=== PATIENT | female | born 1960 | race Caucasian/White ===

== ENCOUNTER 2021-02-04 22:53 | Inpatient (IN) | payer MEDICARE, OTHER ==
[~2021-02-04] VITALS: Ht 170 cm; Wt 83.5 kg
[2021-02-05] MEDS ORDERED: ENOXAPARIN 40 MG/0.4 ML (LOVENOX) SYR ONE (01:38)
[2021-02-05] MEDS ORDERED: NS IV 1000 ML 1,000 ML ONE (01:42)
[2021-02-05] MEDS ORDERED: ENOXAPARIN 40 MG/0.4 ML (LOVENOX) SYR SC ONE (01:45)
[2021-02-05] MEDS: NS IV 1000 ML 1,000 ML IV SCH ×2 (01:56→17:11)
[2021-02-05] MEDS ORDERED: PIPERACILLIN/TAZOBACTAM (BULK) 4.5 GM in NS (IVPB) 100 ML IV ONE (02:00)
[2021-02-05] MEDS: fentaNYL INJ 100 MCG/2 ML AMP IVP PRN ×4 (02:03→08:04)
[2021-02-05 02:13] LABS: ABG BASE EXCESS -0.2 MMOL/L (-2.5-2.5); ABG OXYGEN SATURATION 96 % (94-100); ABG PCO2 45 MMHG (35-45); ABG PH 7.35 (7.37-7.43); ABG PO2 81 MMHG (79-93); ABG TCO2 26.1 MMOL/L (21.0-31.0)
[2021-02-05 02:16] LABS: ALLENS TEST YES-POS; INSPIRED O2 8L; PATIENT TEMP 36.7; VENTILATOR NO
[2021-02-05] MEDS ORDERED: PIPERACILLIN/TAZO 4.5 GM VIAL (ZOSYN) IV ONE (02:23)
[2021-02-05] MEDS: AZITHROMYCIN INJECTION 500 MG in NS (IVPB) 250 ML IV SCH (02:48)
[2021-02-05 04:42] LABS: BASOPHILS % (AUTO) 0 % (0-10); EOSINOPHILS % (AUTO) 0 % (0-10)
[2021-02-05 04:44] LABS: HEMATOCRIT 35 % (35-52); HEMOGLOBIN 11.3 g/dL (11.5-16.0); LYMPHOCYTES # (AUTO) 1.7 10^3/uL (1.0-4.0); LYMPHOCYTES % (AUTO) 16 % (12-44); MEAN CORPUSCULAR HEMOGLOBIN 28 pg (25-34); MEAN CORPUSCULAR HGB CONC 33 g/dL (32-36); MEAN CORPUSCULAR VOLUME 85 fL (80-99); MEAN PLATELET VOLUME 11.6 fL (9.0-12.2); MONOCYTES # (AUTO) 0.6 10^3/uL (0.0-1.0); MONOCYTES % (AUTO) 6 % (0-12); NEUTROPHILS # (AUTO) 7.9 10^3/uL (1.8-7.8); NEUTROPHILS % (AUTO) 76 % (42-75); PLATELET COUNT 95 10^3/uL (130-400); WHITE BLOOD COUNT 10.4 10^3/uL (4.3-11.0)
[2021-02-05 04:58] LABS: BUN/CREATININE RATIO 10; CALCIUM 7.9 MG/DL (8.5-10.1); CARBON DIOXIDE 21 MMOL/L (21-32); CHLORIDE 108 MMOL/L (98-107); CREATININE SERUM 0.87 MG/DL (0.60-1.30); GFR ESTIMATED > 60; GLUCOSE 118 MG/DL (70-105); MAGNESIUM 2.1 MG/DL (1.6-2.4); PHOSPHORUS 3.5 MG/DL (2.3-4.7); POTASSIUM 3.6 MMOL/L (3.6-5.0); SODIUM 138 MMOL/L (135-145)
[2021-02-05] MEDS: POTASSIUM CL 10MEQ/50ML IVPB 50 ML IV SCH (05:00)
[2021-02-05] MEDS: MAGNESIUM 1 GM/100 ML IVPB 100 ML IV SCH (05:00)
[2021-02-05] MEDS: KCL 20 MEQ TAB (K-DUR) PO SCH (05:01)
[2021-02-05] MEDS ORDERED: CATHETER FLUSH 10 ML SYR IV PRN (07:15)
--- NOTE | 2021-02-05 07:37 | Diagnostic Imaging Report ---
INDICATION: Pneumonia. No prior examinations are available for comparison. FINDINGS: The heart size is normal. Some mild venous congestion. There are patchy bibasilar infiltrates. There are small bilateral pleural effusions. There is no pneumothorax. Mediastinum is unremarkable. IMPRESSION: Patchy bibasilar infiltrates and small bilateral pleural effusions. Cardiomegaly and mild central pulmonary venous congestion. Dictated by: Dictated on workstation # [id number]
[2021-02-05] MEDS ORDERED: KCL 20 MEQ TAB (K-DUR) PO ONE (08:00)
[2021-02-05] MEDS: PIPERACILLIN/TAZOBACTAM (BULK) 4.5 GM in NS (IVPB) 100 ML IV SCH ×2 (08:04→17:11)
[2021-02-05] MEDS ORDERED: ACETAMINOPHEN 325 MG TABLET PO PRN (09:45)
[2021-02-05] MEDS ORDERED: oxyCODONE/APAP 5/325MG (PERCOCET 5) TABLET PO PRN (09:45)
--- NOTE | 2021-02-05 10:34 | History & Physical-Hospitalist ---
History of Present Illness HPI/Chief Complaint Jennifer Cervantes is a 60-year-old female with past medical history of hypertension, hypothyroidism, fibromyalgia, who presented to [facility] in [place] with right- sided back pain and right upper quadrant abdominal pain. She reports that the pain started last night. She denies any fevers or chills. She denies any shortness of breath or cough. She denies any chest pain. She denies any nausea or vomiting. She denies any diarrhea. She denies any dysuria, frequency, or urgency. She denies any hematuria. Source: patient Exam Limitations: no limitations Date Seen 02/05/21 Time Seen by a Provider: 09:35 Attending Physician Leelee Cruz Haley J MD Referring Physician Date of Admission Feb 05, 2021 at 00:43 Home Medications & Allergies Home Medications Reviewed patient Home Medication Reconciliation performed by pharmacy medication reconciliations fire alarm technician and/or nursing. Patients Allergies have been reviewed. Allergies Allergies Coded Allergies codeine (Unverified Allergy, Unknown, 02/05/21) Past Cfjatmo-Cbggwj-Zdejew Hx Past Med/Social Hx: Reviewed Nursing Past Med/Soc Hx Patient Social History Smoking Status: Never a Smoker Review of Systems Constitutional: no symptoms reported EENTM: no symptoms reported Respiratory: no symptoms reported Cardiovascular: no symptoms reported Gastrointestinal: RUQ, abdominal pain (RUQ) Genitourinary: no symptoms reported Musculoskeletal: back pain Skin: no symptoms reported Psychiatric/Neurological: No Symptoms Reported Physical Exam Physical Exam Vital Signs Vital Signs - First Documented 02/05/21 02/05/21 02/05/21 02/05/21 00:45 01:06 01:52 02:11 Temp 36.7 Pulse 89 Resp 16 B/P (MAP) 166/108 (127) Pulse Ox 94 O2 Delivery High Flow N/C O2 Flow Rate 8.00 FiO2 50 Capillary Refill : Height, Weight, BMI Height: '" Weight: lbs. oz. kg; 30.10 BMI Method: General Appearance: Mild Distress (back pain), Obese HEENT: PERRL/EOMI, Pharynx Normal Neck: Normal Inspection, Supple Respiratory: Lungs Clear, Normal Breath Sounds, No Respiratory Distress Cardiovascular: Regular Rate, Rhythm, No Edema, No Murmur Gastrointestinal: Normal Bowel Sounds; No Distended; Guarding, Tenderness Back: Normal Inspection, No Vertebral Tenderness, CVA Tenderness (R) Extremity: Normal Inspection, Non Tender, No Pedal Edema Neurologic/Psychiatric: Alert, Oriented x3, No Motor/Sensory Deficits, Normal Mood/Affect Skin: Normal Color, Warm/Dry Results Results/Procedures Labs Laboratory Tests 02/05/21 04:20 Patient resulted labs reviewed. Imaging: Reviewed Imaging Report Assessment/Plan Admission Diagnosis Acute respiratory failure with hypoxia due to pneumonia Admission Status: Inpatient Order (span 2 midnights) Reason for Inpatient Admission: Respiratory failure requiring oxygen Pneumonia requiring antibiotics Assessment and Plan Acute respiratory failure with hypoxia Pneumonia Pleural effusion COVID PUI CT Chest with right effusion and consolidation Started on Zosyn and Azithromycin Requiring Vapotherm 25 L and 50% FiO2 COVID ARTURO negative, PCR pending Add influenza testing Elevated troponin Troponin mildly elevated Cardiology consulted, appreciate assistance Repeat troponin Repeat EKG RUQ pain Fatty liver CT Abdomen without acute abnormalities Revealed enlarged, fatty liver Add on hepatic panel Obtain RUQ ultrasound Pyuria Possible UTI UA with WBC 11-25 Add on urine culture Pulmonary nodule 1 cm nodule identified on CT Will need follow up CT in 6-8 weeks HTN Hypothyroidism Fibromyalgia Continue home meds after reconciliation completed DVT prophylaxis: Lovenox Diagnosis/Problems Diagnosis/Problems (1) Acute respiratory failure with hypoxia Status: Acute (2) PNA (pneumonia) Status: Acute (3) Person under investigation for COVID-19 Status: Acute (4) Pleural effusion Status: Acute (5) Pulmonary nodule Status: Acute (6) Fatty liver Status: Acute (7) RUQ abdominal pain Status: Acute (8) Elevated troponin Status: Acute (9) HTN (hypertension) Status: Chronic (10) Hypothyroidism Status: Chronic (11) Pyuria Status: Acute (12) Fibromyalgia Status: Chronic FRANCINE BRO MD Feb 05, 2021 10:34
[2021-02-05 11:01] LABS: ALBUMIN 3.6 GM/DL (3.2-4.5); BILIRUBIN,DIRECT 0.3 MG/DL (0.0-0.3); BILIRUBIN,INDIRECT 0.6 MG/DL; BILIRUBIN,TOTAL 0.9 MG/DL (0.1-1.0); TOTAL PROTEIN 6.6 GM/DL (6.4-8.2)
[2021-02-05] MEDS: oxyCODONE/APAP 10/325MG (PERCOCET 10) TABLET PO PRN ×3 (11:08→20:54)
--- NOTE | 2021-02-05 12:54 | Consultation-Cardiology ---
HPI-Cardiology Cardiology Consultation: Date of Consultation 02/05/21 Time Seen by a Provider: 09:30 Date of Admission Attending Physician Leelee Cruz DO Admitting Physician Nettie Yap MD Consulting Physician ELDON RIOS MD, MA, FACP, FACC, FSCAI, CCDS Physician requesting consult: Dr Kurtz HPI: Chief Complaint: CC: R upper abdominal and R lower chest wall pain HPI 60 yo woman with several days of malaise, admitted with RLL pneumonia. Is reported to have been hypoxic at presentation (O2 sat in the 80s at presentation). Pain is worse with inspiration is constantly persistent for 1-2 days, does not radiate, is moderate in intensity, has not been experienced before. Does not report n/v/d. Does not report dysuria. Does not report swelling. Does not report shortness of breath. Does not report syncope. Has gen malaise. Does not report fever or chills. Does not report wgt gain or wgt loss recently Review of Systems-Cardiology Review of Systems Constitutional: As described under HPI Eyes: No vision change Ears/Nose/Throat: No ear discharge, No nasal drainage, No recent hearing loss Respiratory: As described under HPI Cardiovascular: As described under HPI Gastrointestinal: As described under HPI Genitourinary: As described under HPI Musculoskeletal: As describe under HPI Skin: No rash, No ulcerations Psychiatric/Neurological: No seizure, No focal weakness, No syncope Hematologic: No bleeding abnormalities [id number]-[id number] Hx Patient Social History Smoking Status: Never a Smoker Have you traveled recently?: No Alcohol Use?: No Pt feels they are or have been: No Past Medical History PMH As described under Assessment. Family Medical History Family Medical History: Does not report fam h/o premature CAD or SCD Allergies and Home Medications Allergies Coded Allergies: codeine (Unverified Allergy, Unknown, 02/05/21) Patient Home Medication List Home Medication List Reviewed: Yes Physical Exam-Cardiology Physical Exam Vital Signs/I&O 02/05/21 02/05/21 02/05/21 02/05/21 00:45 01:06 01:14 01:52 Temp 36.7 Pulse 89 87 87 Resp 16 B/P (MAP) 166/108 (127) 180/112 (134) Pulse Ox 94 O2 Delivery High Flow N/C High Flow N/C O2 Flow Rate 8.00 8.00 02/05/21 02/05/21 02/05/21 02/05/21 02:00 02:11 02:11 03:00 Pulse 96 92 Resp 21 14 B/P (MAP) 141/89 (106) 128/89 (102) Pulse Ox 92 95 92 O2 Delivery Vapotherm Vapotherm Vapotherm Vapotherm O2 Flow Rate 25.00 25.00 25.00 25.00 50.00 50.00 FiO2 50 50 02/05/21 02/05/21 02/05/21 02/05/21 03:54 04:00 04:47 05:00 Temp 36.0 Pulse 90 86 Resp 27 19 B/P (MAP) 139/95 (110) 125/85 (98) Pulse Ox 93 93 O2 Delivery Vapotherm Vapotherm Vapotherm O2 Flow Rate 25.00 25.00 25.00 50.00 50.00 FiO2 50 02/05/21 02/05/21 02/05/21 02/05/21 06:00 06:30 07:00 07:00 Pulse 88 85 80 Resp 13 29 B/P (MAP) 132/87 (102) 134/82 (99) Pulse Ox 95 95 95 O2 Delivery Vapotherm Vapotherm Vapotherm O2 Flow Rate 25.00 25.00 25.00 50.00 50.00 FiO2 50 02/05/21 02/05/21 02/05/21 02/05/21 08:00 08:00 08:00 09:00 Temp 36.4 Pulse 92 82 Resp 38 18 B/P (MAP) 131/87 (102) 142/83 (102) Pulse Ox 90 97 O2 Delivery Vapotherm Vapotherm Vapotherm O2 Flow Rate 25.00 25.00 25.00 50.00 50.00 FiO2 55 02/05/21 02/05/21 02/05/21 10:00 11:00 12:00 Pulse 84 89 91 Resp 24 39 33 B/P (MAP) 142/90 (107) 154/105 (121) 138/81 (100) Pulse Ox 93 96 92 O2 Delivery Vapotherm Vapotherm Vapotherm O2 Flow Rate 25.00 25.00 25.00 50.00 50.00 50.00 Capillary Refill : Constitutional: AAO x 3, well-developed, well-nourished HEENT: EOMI, hearing is well preserved; No xanthelasmas are seen Neck: carotid pulses are 2 + bilaterally, with good upstrokes Respiratory: No accessory muscle use; other (diminished air entry at the R bas e; pleuritic pain experienced by the patient upon inspiration) Cardiovascular: regular rate-rhythm, S1 and S2, systolic murmur (faint MIGUE at card base) Gastrointestinal: No tender; soft; No guarding, No rebound; audible bowel sounds Extremities: No clubbing, No cyanosis, No significant edema Neurologic/Psychiatric: oriented x 3, other (moves all limbs equally) Skin: warm/dry; No cool, No rash on exposed areas, No ulcerations on exposed areas Data Review Labs Laboratory Tests 02/05/21 01:10: Coronavirus 2019 (ARTURO) Negative 02/05/21 02:03: Blood Gas Puncture Site RIGHT RADIAL, Blood Gas Patient Temperature 36.7, Arterial Blood pH 7.35L, Arterial Blood Partial Pressure CO2 45, Arterial Blood Partial Pressure O2 81, Arterial Blood HCO3 25, Arterial Blood Total CO2 26.1, Arterial Blood Oxygen Saturation 96, Arterial Blood Base Excess -0.2, Laz Test YES-POS, Blood Gas Ventilator Setting NO, Blood Gas Inspired Oxygen 8L 02/05/21 04:20: White Blood Count 10.4, Red Blood Count 4.08, Hemoglobin 11.3L, Hematocrit 35, Mean Corpuscular Volume 85, Mean Corpuscular Hemoglobin 28, Mean Corpuscular Hemoglobin Concent 33, Red Cell Distribution Width 14.5, Platelet Count 95L, Mean Platelet Volume 11.6, Immature Granulocyte % (Auto) 1, Neutrophils (%) (Auto) 76H, Lymphocytes (%) (Auto) 16, Monocytes (%) (Auto) 6, Eosinophils (%) (Auto) 0, Basophils (%) (Auto) 0, Neutrophils # (Auto) 7.9H, Lymphocytes # (Auto) 1.7, Monocytes # (Auto) 0.6, Eosinophils # (Auto) 0.0, Basophils # (Auto) 0.0, Immature Granulocyte # (Auto) 0.1, Sodium Level 138, Potassium Level 3.6, Chloride Level 108H, Carbon Dioxide Level 21, Anion Gap 9, Blood Urea Nitrogen 9, Creatinine 0.87, Estimat Glomerular Filtration Rate > 60, BUN/Creatinine Ratio 10, Glucose Level 118H, Calcium Level 7.9L, Phosphorus Level 3.5, Magnesium Level 2.1, Troponin I 0.104H 02/05/21 10:15: Troponin I 0.086H, Total Bilirubin 0.9, Direct Bilirubin 0.3, Indirect Bilirubin 0.6, Aspartate Amino Transf (AST/SGOT) 15, Alanine Aminotransferase (ALT/SGPT) 15, Alkaline Phosphatase 77, B-Type Natriuretic Peptide 48.7, Total Protein 6.6, Albumin 3.6 Laboratory Tests 02/05/21 04:20 A/P-Cardiology Assessment/Admission Diagnosis Large RLL pneumonia with pleurisy and hypoxia Mild troponin elevation: type 2 [place] due to hypoxia due to RLL pnuemonia and dsypnea (due to pleurisy) Discussion and Recomendations * Tele * ECG * ASA * Monitor labs ELDON RIOS MD FACP [facility] Feb 05, 2021 12:54
[2021-02-05] MEDS ORDERED: LEVO25TA5 PO (14:34)
[2021-02-05] MEDS ORDERED: GABA300C PO (14:34)
[2021-02-05] MEDS ORDERED: CYCL10TA9 PO (14:34)
[2021-02-05] MEDS ORDERED: NEURIVA PO (14:34)
[2021-02-05] MEDS ORDERED: DULO60CA59 PO (14:34)
[2021-02-05] MEDS ORDERED: TRAM50TA3 PO (14:34)
[2021-02-05] MEDS ORDERED: CAND1TAB14 PO (14:34)
--- NOTE | 2021-02-05 14:54 | Diagnostic Imaging Report ---
PROCEDURE: US Hepatic (Liver). TECHNIQUE: Multiple real-time grayscale images were obtained over the right upper quadrant in various projections. INDICATION: Right upper quadrant pain. FINDINGS: Liver is upper limits of normal in size at 17.7 cm. Portal vein is patent and shows normal direction of flow. No liver mass is seen. Gallbladder is without stones or sludge. No wall thickening or biliary ductal dilatation is seen. Pancreas was obscured by bowel gas. Proximal aorta is nonaneurysmal. Mid and distal aorta were obscured. IVC is patent. Right kidney is without calculi or hydronephrosis. There is a questionable right-sided pleural effusion. IMPRESSION: 1. Unremarkable liver ultrasound. No liver mass or biliary ductal dilatation is seen. The gallbladder is unremarkable. 2. Questionable right pleural effusion. Dictated by: Dictated on workstation # [id number]
[2021-02-05] MEDS: ENOXAPARIN 40 MG/0.4 ML (LOVENOX) SYR SC SCH (20:54)
[2021-02-06] MEDS: oxyCODONE/APAP 10/325MG (PERCOCET 10) TABLET PO PRN ×6 (00:14→20:05)
[2021-02-06] MEDS: PIPERACILLIN/TAZOBACTAM (BULK) 4.5 GM in NS (IVPB) 100 ML IV SCH ×2 (00:44→08:14)
[2021-02-06] MEDS: AZITHROMYCIN INJECTION 500 MG in NS (IVPB) 250 ML IV SCH (02:00)
[2021-02-06] MEDS: NS IV 1000 ML 1,000 ML IV SCH ×2 (04:03→08:14)
[2021-02-06 04:06] LABS: EOSINOPHILS # (AUTO) 0.1 10^3/uL (0.0-0.3); EOSINOPHILS % (AUTO) 1 % (0-10); PLATELET COUNT 96 10^3/uL (130-400)
[2021-02-06 04:08] LABS: BASOPHILS % (AUTO) 0 % (0-10); HEMATOCRIT 35 % (35-52); HEMOGLOBIN 11.1 g/dL (11.5-16.0); LYMPHOCYTES # (AUTO) 2.1 10^3/uL (1.0-4.0); LYMPHOCYTES % (AUTO) 30 % (12-44); MEAN CORPUSCULAR HEMOGLOBIN 27 pg (25-34); MEAN CORPUSCULAR HGB CONC 32 g/dL (32-36); MEAN CORPUSCULAR VOLUME 84 fL (80-99); MEAN PLATELET VOLUME 11.2 fL (9.0-12.2); MONOCYTES # (AUTO) 0.5 10^3/uL (0.0-1.0); MONOCYTES % (AUTO) 7 % (0-12); NEUTROPHILS # (AUTO) 4.2 10^3/uL (1.8-7.8); NEUTROPHILS % (AUTO) 61 % (42-75); WHITE BLOOD COUNT 6.9 10^3/uL (4.3-11.0)
[2021-02-06 04:26] LABS: CHLORIDE 108 MMOL/L (98-107); POTASSIUM 3.7 MMOL/L (3.6-5.0); SODIUM 138 MMOL/L (135-145)
[2021-02-06 04:27] LABS: CALCIUM 8.2 MG/DL (8.5-10.1); GLUCOSE 96 MG/DL (70-105)
[2021-02-06 04:29] LABS: CARBON DIOXIDE 21 MMOL/L (21-32)
[2021-02-06 04:31] LABS: CREATININE SERUM 0.82 MG/DL (0.60-1.30); GFR ESTIMATED > 60; PHOSPHORUS 3.5 MG/DL (2.3-4.7)
[2021-02-06 04:32] LABS: BUN/CREATININE RATIO 12
[2021-02-06 04:34] LABS: MAGNESIUM 2.2 MG/DL (1.6-2.4)
[2021-02-06] MEDS: POTASSIUM CL 10MEQ/50ML IVPB 50 ML IV SCH (05:54)
[2021-02-06] MEDS: MAGNESIUM 1 GM/100 ML IVPB 100 ML IV SCH (05:54)
[2021-02-06] MEDS: KCL 20 MEQ TAB (K-DUR) PO SCH (05:55)
--- NOTE | 2021-02-06 07:40 | Diagnostic Imaging Report ---
EXAMINATION: Chest 1 view HISTORY: Pneumonia. COMPARISON: 02/05/2021. FINDINGS: Lung volumes are slightly decreased. There is continued cardiomegaly with patchy opacities in the bilateral perihilar regions and lung bases. No large pleural effusion or pneumothorax. No acute osseous abnormalities. IMPRESSION: 1. Stable patchy opacities in the perihilar regions and lung bases, which may represent infection or edema. 2. Stable prominent cardiac silhouette. This may be partially due to low lung volumes. Dictated by: Dictated on workstation # [id number]
[2021-02-06] MEDS: ASPIRIN 81 MG CHEW (CHILDREN'S ASA) PO SCH (08:14)
[2021-02-06] MEDS ORDERED: SENNOSIDES 8.6 MG (SENOKOT) TAB PO ONE (10:00)
[2021-02-06] MEDS ORDERED: DOCUSATE SODIUM 100 MG (COLACE) CAP PO ONE (10:00)
[2021-02-06] MEDS ORDERED: polyethylene glycoL POWDER 17 GM (MIRALAX) PACK PO PRN (10:00)
[2021-02-06] MEDS: cefTRIAXone FOR IV USE 2,000 MG in WATER (STERILE) FOR INJECTION 20 ML IV SCH (10:31)
[2021-02-06] MEDS: VALSARTAN 160 MG (DIOVAN) TABLET PO SCH (10:32)
[2021-02-06] MEDS: DULoxetine 30 MG (CYMBALTA) CAP PO SCH (10:32)
[2021-02-06] MEDS: LEVOTHYROXINE 25 MCG (LEVOTHROID) TAB PO SCH (10:33)
[2021-02-06] MEDS: CYCLOBENZAPRINE 10 MG (FLEXERIL) TAB PO PRN ×2 (10:33→17:49)
[2021-02-06] MEDS: GABAPENTIN 300 MG (NEURONTIN) CAP PO SCH ×2 (10:33→21:15)
[2021-02-06] MEDS: CARVEDILOL 6.25 MG (COREG) TAB PO SCH ×2 (10:33→21:15)
--- NOTE | 2021-02-06 12:13 | Progress Note - Hospitalist ---
Subjective HPI/CC On Admission Date Seen by Provider: Feb 06, 2021 Time Seen by Provider: 09:35 Jennifer Cervantes is a 60-year-old female with past medical history of hypertension, hypothyroidism, fibromyalgia, who presented to [facility] in [place] with right- sided back pain and right upper quadrant abdominal pain. She reports that the pain started last night. She denies any fevers or chills. She denies any shortness of breath or cough. She denies any chest pain. She denies any nausea or vomiting. She denies any diarrhea. She denies any dysuria, frequency, or urgency. She denies any hematuria. Subjective/Events-last exam She continues to have pain on her right side. She denies any fevers or chills. She denies any nausea or vomiting. She says she is constipated. She denies any shortness of breath or cough. Objective Exam Vital Signs Vital Signs Date Time Temp Pulse Resp B/P (MAP) Pulse Ox O2 Delivery O2 Flow Rate FiO2 02/06/21 11:06 96 High Flow N/C 3.50 02/06/21 11:00 80 16 145/92 (109) 02/06/21 07:34 35.9 02/05/21 21:42 40 Capillary Refill : General Appearance: No Apparent Distress, Obese Respiratory: Lungs Clear, Normal Breath Sounds, No Respiratory Distress Cardiovascular: Regular Rate, Rhythm, No Edema, No Murmur Gastrointestinal: Normal Bowel Sounds, Soft, Tenderness (Right upper quadrant) Extremity: Normal Inspection, Non Tender, No Pedal Edema Neurologic/Psychiatric: Alert, Oriented x3, No Motor/Sensory Deficits, Normal Mood/Affect Skin: Normal Color, Warm/Dry Results/Procedures Lab Laboratory Tests 02/06/21 04:00 Patient resulted labs reviewed. Imaging: Reviewed Imaging Report Assessment/Plan Assessment and Plan Assess & Plan/Chief Complaint Acute respiratory failure with hypoxia Pneumonia Pleural effusion CT Chest with right effusion and consolidation COVID negative Oxygen requirement down to 3.5 L nasal cannula Transition to Rocephin and Azithromycin Elevated troponin Troponin mildly elevated, repeat trending down Cardiology consulted, appreciate assistance RUQ pain Fatty liver CT Abdomen without acute abnormalities Revealed enlarged, fatty liver Liver enzymes normal RUQ ultrasound negative Pyuria UA with WBC 11-25 Urine culture with no growth Pulmonary nodule 1 cm nodule identified on CT Will need follow up CT in 6-8 weeks HTN Hypothyroidism Fibromyalgia Continue home meds after reconciliation completed DVT prophylaxis: Lovenox Diagnosis/Problems Diagnosis/Problems (1) Acute respiratory failure with hypoxia Status: Acute (2) PNA (pneumonia) Status: Acute (3) Person under investigation for COVID-19 Status: Resolved Resolution Date/Time: 02/06/21 @ 12:12 (4) Pleural effusion Status: Acute (5) Pulmonary nodule Status: Acute (6) Fatty liver Status: Acute (7) RUQ abdominal pain Status: Acute (8) Elevated troponin Status: Acute (9) HTN (hypertension) Status: Chronic (10) Hypothyroidism Status: Chronic (11) Pyuria Status: Acute (12) Fibromyalgia Status: Chronic FRANCINE BRO MD Feb 06, 2021 12:13
--- NOTE | 2021-02-06 14:43 | Progress Note - Cardiology ---
Cardiology SOAP Progress Note Subjective: No cp or palp or syncope Shortness of breath and R lower chest wall pain with inspiration Some gen malaise No n/v/d Objective: I&O/Vital Signs 02/06/21 02/06/21 02/06/21 02/06/21 03:00 04:00 04:00 05:00 Pulse 78 83 85 Resp 28 26 B/P (MAP) 136/103 (114) 137/96 (110) Pulse Ox 94 91 95 O2 Delivery High Flow N/C High Flow N/C High Flow N/C High Flow N/C O2 Flow Rate 5.00 5.00 5.00 5.00 02/06/21 02/06/21 02/06/21 02/06/21 06:00 07:00 07:00 07:34 Temp 35.9 Pulse 86 87 77 Resp 28 B/P (MAP) 138/94 (109) 147/95 (112) Pulse Ox 94 O2 Delivery High Flow N/C High Flow N/C O2 Flow Rate 5.00 5.00 02/06/21 02/06/21 02/06/21 02/06/21 08:00 08:07 08:32 09:00 Pulse 86 83 Resp 21 12 B/P (MAP) 176/115 (135) 155/95 (115) Pulse Ox 90 96 O2 Delivery High Flow N/C High Flow N/C High Flow N/C High Flow N/C O2 Flow Rate 5.00 5.00 5.00 5.00 02/06/21 02/06/21 02/06/21 02/06/21 10:00 11:00 11:06 12:00 Temp 36.5 Pulse 83 80 79 Resp 16 16 20 B/P (MAP) 138/94 (109) 145/92 (109) 162/89 (113) Pulse Ox 95 94 96 95 O2 Delivery High Flow N/C High Flow N/C High Flow N/C High Flow N/C O2 Flow Rate 3.00 3.00 3.50 3.50 02/06/21 13:00 O2 Delivery High Flow N/C O2 Flow Rate 5.00 02/06/21 00:00 Intake Total 700 ml Balance 700 ml Constitutional: AAO x 3, well-developed, well-nourished Respiratory: No accessory muscle use; other (diminished air entry at the R base; pleuritic pain experienced by the patient upon inspiration) Cardiovascular: regular rate-rhythm, S1 and S2, systolic murmur (faint MIGUE at card base) Gastrointestional: No tender; soft; No guarding, No rebound; audible bowel sounds Extremities: No clubbing, No cyanosis, No significant edema Neurologic/Psychiatric: oriented x 3, other (moves all limbs equally) Skin: warm/dry; No cool, No rash on exposed areas, No ulcerations on exposed areas Results/Procedures: Labs Laboratory Tests 02/06/21 04:00: White Blood Count 6.9, Red Blood Count 4.16, Hemoglobin 11.1L, Hematocrit 35, Mean Corpuscular Volume 84, Mean Corpuscular Hemoglobin 27, Mean Corpuscular Hemoglobin Concent 32, Red Cell Distribution Width 14.0, Platelet Count 96L, Mean Platelet Volume 11.2, Immature Granulocyte % (Auto) 1, Neutrophils (%) (Auto) 61, Lymphocytes (%) (Auto) 30, Monocytes (%) (Auto) 7, Eosinophils (%) (Auto) 1, Basophils (%) (Auto) 0, Neutrophils # (Auto) 4.2, Lymphocytes # (Auto) 2.1, Monocytes # (Auto) 0.5, Eosinophils # (Auto) 0.1, Basophils # (Auto) 0.0, Immature Granulocyte # (Auto) 0.0, Sodium Level 138, Potassium Level 3.7, Chloride Level 108H, Carbon Dioxide Level 21, Anion Gap 9, Blood Urea Nitrogen 10, Creatinine 0.82, Estimat Glomerular Filtration Rate > 60, BUN/Creatinine Ratio 12, Glucose Level 96, Calcium Level 8.2L, Phosphorus Level 3.5, Magnesium Level 2.2 Microbiology 02/05/21 Urine Culture - Final, Complete NO GROWTH 02/05/21 MRSA Screen - Final, Complete MRSA not isolated Laboratory Tests 02/05/21 04:20 02/06/21 04:00 A/P: Assessment: Large RLL pneumonia with pleurisy and hypoxia Mild troponin elevation: type 2 [place] due to hypoxia due to RLL pnuemonia and dsypnea (due to pleurisy) Plan: * Monitor labs * I spoke with her and her and answered CV-related questions ELDON RIOS MD FACP [facility] Feb 06, 2021 14:43
[2021-02-06] MEDS: ENOXAPARIN 40 MG/0.4 ML (LOVENOX) SYR SC SCH (21:15)
[2021-02-07] MEDS: oxyCODONE/APAP 10/325MG (PERCOCET 10) TABLET PO PRN ×4 (00:03→19:57)
[2021-02-07] MEDS: NS IV 1000 ML 1,000 ML IV SCH ×2 (00:35→09:33)
[2021-02-07] MEDS: CYCLOBENZAPRINE 10 MG (FLEXERIL) TAB PO PRN ×3 (01:29→21:13)
[2021-02-07] MEDS: LEVOTHYROXINE 25 MCG (LEVOTHROID) TAB PO SCH (05:22)
[2021-02-07 05:23] LABS: BASOPHILS % (AUTO) 1 % (0-10); EOSINOPHILS # (AUTO) 0.1 10^3/uL (0.0-0.3); EOSINOPHILS % (AUTO) 1 % (0-10); HEMATOCRIT 36 % (35-52); HEMOGLOBIN 11.5 g/dL (11.5-16.0); LYMPHOCYTES # (AUTO) 1.6 10^3/uL (1.0-4.0); LYMPHOCYTES % (AUTO) 28 % (12-44); MEAN CORPUSCULAR HEMOGLOBIN 27 pg (25-34); MEAN CORPUSCULAR HGB CONC 32 g/dL (32-36); MEAN CORPUSCULAR VOLUME 85 fL (80-99); MEAN PLATELET VOLUME 11.7 fL (9.0-12.2); MONOCYTES # (AUTO) 0.4 10^3/uL (0.0-1.0); MONOCYTES % (AUTO) 7 % (0-12); NEUTROPHILS # (AUTO) 3.7 10^3/uL (1.8-7.8); NEUTROPHILS % (AUTO) 63 % (42-75); PLATELET COUNT 122 10^3/uL (130-400); WHITE BLOOD COUNT 5.9 10^3/uL (4.3-11.0)
[2021-02-07 05:30] LABS: CHLORIDE 107 MMOL/L (98-107); POTASSIUM 3.9 MMOL/L (3.6-5.0); SODIUM 139 MMOL/L (135-145)
[2021-02-07 05:32] LABS: CALCIUM 8.6 MG/DL (8.5-10.1); GLUCOSE 88 MG/DL (70-105)
[2021-02-07 05:34] LABS: CARBON DIOXIDE 20 MMOL/L (21-32)
[2021-02-07 05:36] LABS: CREATININE SERUM 0.83 MG/DL (0.60-1.30); GFR ESTIMATED > 60; PHOSPHORUS 3.9 MG/DL (2.3-4.7)
[2021-02-07 05:37] LABS: BUN/CREATININE RATIO 10
[2021-02-07 05:38] LABS: MAGNESIUM 2.1 MG/DL (1.6-2.4)
[2021-02-07] MEDS: MAGNESIUM 1 GM/100 ML IVPB 100 ML IV SCH (05:57)
[2021-02-07] MEDS: POTASSIUM CL 10MEQ/50ML IVPB 50 ML IV SCH (05:57)
[2021-02-07] MEDS: KCL 20 MEQ TAB (K-DUR) PO SCH (05:57)
[2021-02-07] MEDS ORDERED: cefTRIAXone 1,000 MG IV (ROCEPHIN) VIAL ONE (09:00)
[2021-02-07] MEDS ORDERED: DOCUSATE SODIUM 100 MG (COLACE) CAP PO PRN (09:00)
[2021-02-07] MEDS ORDERED: WATER (STERILE) FOR INJECTION 10 ML ONE (09:00)
[2021-02-07] MEDS ORDERED: WATER (STERILE) FOR INJECTION 20 ML ONE (09:23)
[2021-02-07] MEDS ORDERED: cefTRIAXone 2 GM/20 ML for IV (ROCEPHIN) ONE (09:23)
[2021-02-07] MEDS: AZITHROMYCIN 250 MG TAB (ZITHROMAX) PO SCH (09:29)
[2021-02-07] MEDS: cefTRIAXone FOR IV USE 2,000 MG in WATER (STERILE) FOR INJECTION 20 ML IV SCH (09:29)
[2021-02-07] MEDS: DULoxetine 30 MG (CYMBALTA) CAP PO SCH (09:30)
[2021-02-07] MEDS: GABAPENTIN 300 MG (NEURONTIN) CAP PO SCH ×2 (09:30→21:13)
[2021-02-07] MEDS: VALSARTAN 160 MG (DIOVAN) TABLET PO SCH (09:30)
[2021-02-07] MEDS: SENNOSIDES 8.6 MG (SENOKOT) TAB PO SCH (09:30)
[2021-02-07] MEDS: ASPIRIN 81 MG CHEW (CHILDREN'S ASA) PO SCH (09:30)
[2021-02-07] MEDS: CARVEDILOL 6.25 MG (COREG) TAB PO SCH ×2 (09:32→21:13)
--- NOTE | 2021-02-07 11:07 | Progress Note - Hospitalist ---
Subjective HPI/CC On Admission Date Seen by Provider: Feb 07, 2021 Time Seen by Provider: 10:30 Jennifer Cervantes is a 60-year-old female with past medical history of hypertension, hypothyroidism, fibromyalgia, who presented to [facility] in [place] with right- sided back pain and right upper quadrant abdominal pain. She reports that the pain started last night. She denies any fevers or chills. She denies any shortness of breath or cough. She denies any chest pain. She denies any nausea or vomiting. She denies any diarrhea. She denies any dysuria, frequency, or urgency. She denies any hematuria. Subjective/Events-last exam She is feeling about the same as yesterday. She is still having muscle spasms but they are less frequent. She is not feeling short of breath. Objective Exam Vital Signs Vital Signs Date Time Temp Pulse Resp B/P (MAP) Pulse Ox O2 Delivery O2 Flow Rate FiO2 02/07/21 08:00 High Flow N/C 5.00 02/07/21 07:26 35.4 79 16 139/79 (99) 93 02/05/21 21:42 40 Capillary Refill : General Appearance: No Apparent Distress, Obese Respiratory: No Respiratory Distress, Decreased Breath Sounds, Other (Wearing nasal cannula) Cardiovascular: Regular Rate, Rhythm, No Edema, No Murmur Gastrointestinal: Normal Bowel Sounds, Non Tender, Soft Extremity: Normal Inspection, Non Tender, No Pedal Edema Neurologic/Psychiatric: Alert, Oriented x3, No Motor/Sensory Deficits, Normal Mood/Affect Skin: Normal Color, Warm/Dry Results/Procedures Lab Laboratory Tests 02/07/21 05:10 Patient resulted labs reviewed. Imaging: Reviewed Imaging Report Assessment/Plan Assessment and Plan Assess & Plan/Chief Complaint Acute respiratory failure with hypoxia Pneumonia Pleural effusion CT Chest with right effusion and consolidation Continue supplemental oxygen Continue Rocephin and Azithromycin NSTEMI, likely type II Troponin mildly elevated, repeat trending down Cardiology consulted, appreciate assistance Muscle spasms RUQ pain Fatty liver CT Abdomen without acute abnormalities Revealed enlarged, fatty liver Liver enzymes normal RUQ ultrasound negative Continue Flexeril Pyuria UA with WBC 11-25 Urine culture with no growth Pulmonary nodule 1 cm nodule identified on CT Will need follow up CT in 6-8 weeks HTN Hypothyroidism Fibromyalgia Continue home meds after reconciliation completed DVT prophylaxis: Lovenox Diagnosis/Problems Diagnosis/Problems (1) Acute respiratory failure with hypoxia Status: Acute (2) PNA (pneumonia) Status: Acute (3) Person under investigation for COVID-19 Status: Resolved Resolution Date/Time: 02/06/21 @ 12:12 (4) Pleural effusion Status: Acute (5) Pulmonary nodule Status: Acute (6) Fatty liver Status: Acute (7) RUQ abdominal pain Status: Acute (8) Elevated troponin Status: Acute (9) HTN (hypertension) Status: Chronic (10) Hypothyroidism Status: Chronic (11) Pyuria Status: Acute (12) Fibromyalgia Status: Chronic FRANCINE BRO MD Feb 07, 2021 11:07
--- NOTE | 2021-02-07 13:21 | Progress Note - Cardiology ---
Cardiology SOAP Progress Note Subjective: Continues to have pain in the R lower chest / RUQ, worse with inspiration Short of breath due to pain No other cp No palp or syncope or swelling No n/v/d Gen malaise present Objective: I&O/Vital Signs 02/07/21 02/07/21 02/07/21 03:59 07:26 08:00 Temp 36.3 35.4 Pulse 76 79 Resp 18 16 B/P (MAP) 154/92 (112) 139/79 (99) Pulse Ox 94 93 O2 Delivery High Flow N/C High Flow N/C High Flow N/C O2 Flow Rate 3.50 5.00 5.00 02/07/21 00:00 Intake Total 1670 ml Balance 1670 ml Constitutional: AAO x 3, well-developed, well-nourished Respiratory: No accessory muscle use; other (diminished air entry at the R base; pleuritic pain experienced by the patient upon inspiration) Cardiovascular: regular rate-rhythm, S1 and S2, systolic murmur (faint MIGUE at card base) Gastrointestional: No tender; soft; No guarding, No rebound; audible bowel sounds Extremities: No clubbing, No cyanosis, No significant edema Neurologic/Psychiatric: oriented x 3, other (moves all limbs equally) Skin: warm/dry; No cool, No rash on exposed areas, No ulcerations on exposed areas Results/Procedures: Labs Laboratory Tests 02/07/21 05:10: White Blood Count 5.9, Red Blood Count 4.28, Hemoglobin 11.5, Hematocrit 36, Mean Corpuscular Volume 85, Mean Corpuscular Hemoglobin 27, Mean Corpuscular Hemoglobin Concent 32, Red Cell Distribution Width 14.0, Platelet Count 122L, Mean Platelet Volume 11.7, Immature Granulocyte % (Auto) 1, Neutrophils (%) (Auto) 63, Lymphocytes (%) (Auto) 28, Monocytes (%) (Auto) 7, Eosinophils (%) (Auto) 1, Basophils (%) (Auto) 1, Neutrophils # (Auto) 3.7, Lymphocytes # (Auto) 1.6, Monocytes # (Auto) 0.4, Eosinophils # (Auto) 0.1, Basophils # (Auto) 0.0, Immature Granulocyte # (Auto) 0.1, Sodium Level 139, Potassium Level 3.9, Chloride Level 107, Carbon Dioxide Level 20L, Anion Gap 12, Blood Urea Nitrogen 8, Creatinine 0.83, Estimat Glomerular Filtration Rate > 60, BUN/Creatinine Ratio 10, Glucose Level 88, Calcium Level 8.6, Phosphorus Level 3.9, Magnesium Level 2.1 Microbiology 02/05/21 Urine Culture - Final, Complete NO GROWTH 02/05/21 MRSA Screen - Final, Complete MRSA not isolated Laboratory Tests 02/06/21 04:00 02/07/21 05:10 A/P: Assessment: Large RLL pneumonia with pleurisy and hypoxia Mild troponin elevation: type 2 [place] due to hypoxia due to RLL pnuemonia and dsypnea (due to pleurisy) Plan: * Monitor labs * Cardiac status appears clinically stable ELDON RIOS MD FACP [facility] CCDS Feb 07, 2021 13:21
[2021-02-07] MEDS ORDERED: LORazepam INJ 2 MG/ML (ATIVAN) VIAL IVP PRN (14:30)
[2021-02-07] MEDS: ENOXAPARIN 40 MG/0.4 ML (LOVENOX) SYR SC SCH (21:13)
[2021-02-08] MEDS: oxyCODONE/APAP 10/325MG (PERCOCET 10) TABLET PO PRN ×3 (00:05→20:49)
[2021-02-08] MEDS: NS IV 1000 ML 1,000 ML IV SCH ×3 (04:00→20:50)
[2021-02-08 06:02] LABS: NEUTROPHILS # (AUTO) 3.4 10^3/uL (1.8-7.8)
[2021-02-08 06:04] LABS: BASOPHILS % (AUTO) 1 % (0-10); EOSINOPHILS % (AUTO) 1 % (0-10); HEMATOCRIT 35 % (35-52); HEMOGLOBIN 11.4 g/dL (11.5-16.0); LYMPHOCYTES # (AUTO) 1.7 10^3/uL (1.0-4.0); LYMPHOCYTES % (AUTO) 30 % (12-44); MEAN CORPUSCULAR HEMOGLOBIN 27 pg (25-34); MEAN CORPUSCULAR HGB CONC 32 g/dL (32-36); MEAN CORPUSCULAR VOLUME 83 fL (80-99); MEAN PLATELET VOLUME 11.5 fL (9.0-12.2); MONOCYTES # (AUTO) 0.5 10^3/uL (0.0-1.0); MONOCYTES % (AUTO) 8 % (0-12); NEUTROPHILS % (AUTO) 60 % (42-75); PLATELET COUNT 137 10^3/uL (130-400); WHITE BLOOD COUNT 5.6 10^3/uL (4.3-11.0)
[2021-02-08] MEDS: LEVOTHYROXINE 25 MCG (LEVOTHROID) TAB PO SCH (06:16)
[2021-02-08 06:23] LABS: CHLORIDE 106 MMOL/L (98-107); POTASSIUM 3.6 MMOL/L (3.6-5.0); SODIUM 138 MMOL/L (135-145)
[2021-02-08 06:24] LABS: CALCIUM 8.6 MG/DL (8.5-10.1)
[2021-02-08 06:25] LABS: GLUCOSE 88 MG/DL (70-105)
[2021-02-08 06:26] LABS: CARBON DIOXIDE 21 MMOL/L (21-32)
[2021-02-08 06:28] LABS: PHOSPHORUS 4.4 MG/DL (2.3-4.7)
[2021-02-08] MEDS: POTASSIUM CL 10MEQ/50ML IVPB 50 ML IV SCH (06:28)
[2021-02-08] MEDS: KCL 20 MEQ TAB (K-DUR) PO SCH (06:28)
[2021-02-08 06:29] LABS: BUN/CREATININE RATIO 12; CREATININE SERUM 0.83 MG/DL (0.60-1.30); GFR ESTIMATED > 60
[2021-02-08 06:31] LABS: MAGNESIUM 2.2 MG/DL (1.6-2.4)
[2021-02-08] MEDS: MAGNESIUM 1 GM/100 ML IVPB 100 ML IV SCH (06:39)
[2021-02-08] MEDS: ASPIRIN 81 MG CHEW (CHILDREN'S ASA) PO SCH (09:15)
[2021-02-08] MEDS: VALSARTAN 160 MG (DIOVAN) TABLET PO SCH (09:15)
[2021-02-08] MEDS: SENNOSIDES 8.6 MG (SENOKOT) TAB PO SCH (09:15)
[2021-02-08] MEDS: DULoxetine 30 MG (CYMBALTA) CAP PO SCH (09:15)
[2021-02-08] MEDS: GABAPENTIN 300 MG (NEURONTIN) CAP PO SCH ×2 (09:15→20:49)
[2021-02-08] MEDS: CARVEDILOL 6.25 MG (COREG) TAB PO SCH ×2 (09:16→20:49)
[2021-02-08] MEDS: AZITHROMYCIN 250 MG TAB (ZITHROMAX) PO SCH (09:16)
--- NOTE | 2021-02-08 10:39 | Progress Note - Cardiology ---
Cardiology SOAP Progress Note Subjective: Lying in bed C/O RLQ discomfort C/O discomfort with deep breathing No c/o palpitations Objective: I&O/Vital Signs 02/09/21 02/10/21 23:48 02:13 Temp 35.8 Pulse 96 Resp 19 B/P (MAP) 178/84 (115) Pulse Ox 94 94 O2 Delivery High Flow N/C Nasal Cannula O2 Flow Rate 2.00 3.00 02/10/21 00:00 Intake Total 2876 ml Balance 2876 ml Constitutional: AAO x 3, well-developed, well-nourished Respiratory: No accessory muscle use; other (diminished air entry at the R base; pleuritic pain experienced by the patient upon inspiration; poor inspiratory effort) Cardiovascular: regular rate-rhythm, S1 and S2, systolic murmur (faint MIGUE at card base) Gastrointestional: No tender; soft; No guarding, No rebound; audible bowel sounds Extremities: No clubbing, No cyanosis, No significant edema Neurologic/Psychiatric: oriented x 3, other (moves all limbs equally) Skin: warm/dry; No cool, No rash on exposed areas, No ulcerations on exposed areas Results/Procedures: Labs Laboratory Tests 02/10/21 05:30: White Blood Count 5.5, Red Blood Count 4.28, Hemoglobin 11.6, Hematocrit 36, Mean Corpuscular Volume 83, Mean Corpuscular Hemoglobin 27, Mean Corpuscular Hemoglobin Concent 33, Red Cell Distribution Width 14.2, Platelet Count 144, Mean Platelet Volume 11.4, Immature Granulocyte % (Auto) 1, Neutrophils (%) (Auto) 67, Lymphocytes (%) (Auto) 24, Monocytes (%) (Auto) 7, Eosinophils (%) (Auto) 1, Basophils (%) (Auto) 0, Neutrophils # (Auto) 3.7, Lymphocytes # (Auto) 1.3, Monocytes # (Auto) 0.4, Eosinophils # (Auto) 0.0, Basophils # (Auto) 0.0, Immature Granulocyte # (Auto) 0.1, Sodium Level 140, Potassium Level 3.5L, Chloride Level 107, Carbon Dioxide Level 23, Anion Gap 10, Blood Urea Nitrogen 8, Creatinine 0.84, Estimat Glomerular Filtration Rate > 60, BUN/Creatinine Ratio 10, Glucose Level 98, Calcium Level 8.8, Phosphorus Level 4.5, Magnesium Level 2.1, Procalcitonin 0.25H Microbiology 02/05/21 Urine Culture - Final, Complete NO GROWTH 02/05/21 MRSA Screen - Final, Complete MRSA not isolated A/P: Assessment: Large RLL pneumonia with pleurisy and hypoxia Mild troponin elevation: type 2 [place] due to hypoxia due to RLL pnuemonia and dsypnea (due to pleurisy) Plan: * Monitor labs * Replace electrolytes as indicated * Cardiac status appears clinically stable LUCIO CASTAÑEDA [facility] Feb 08, 2021 10:39
[2021-02-08] MEDS ORDERED: LIDOCAINE 4% (SALONPAS) PATCH TOP PRN (11:45)
--- NOTE | 2021-02-08 11:50 | Progress Note - Hospitalist ---
Subjective HPI/CC On Admission Date Seen by Provider: Feb 08, 2021 Time Seen by Provider: 11:44 Jennifer Cervantes is a 60-year-old female with past medical history of hypertension, hypothyroidism, fibromyalgia, who presented to [facility] in [place] with right- sided back pain and right upper quadrant abdominal pain. She reports that the pain started last night. She denies any fevers or chills. She denies any shortness of breath or cough. She denies any chest pain. She denies any nausea or vomiting. She denies any diarrhea. She denies any dysuria, frequency, or urgency. She denies any hematuria. Subjective/Events-last exam Pt reports some shoulder pain today. Did not complain of right sided abdominal pain or spasms when asked generically but when asked specifically did endorse pain. Objective Exam Vital Signs Vital Signs Date Time Temp Pulse Resp B/P (MAP) Pulse Ox O2 Delivery O2 Flow Rate FiO2 02/08/21 09:03 99 High Flow N/C 4.00 02/08/21 08:11 36.0 81 18 146/90 (108) 02/05/21 21:42 40 Capillary Refill : General Appearance: No Apparent Distress, WD/WN Respiratory: No Accessory Muscle Use, Decreased Breath Sounds, Other (nasal cannula off, resting comfortably) Cardiovascular: Regular Rate, Rhythm, No Murmur Gastrointestinal: Normal Bowel Sounds, Non Tender, Soft Neurologic/Psychiatric: Alert, Oriented x3 Skin: Other (skin on right flank normal, no rash or lesions) Results/Procedures Lab Laboratory Tests 02/08/21 05:40 Patient resulted labs reviewed. Imaging: Reviewed Imaging Report Assessment/Plan Assessment and Plan Assess & Plan/Chief Complaint Acute respiratory failure with hypoxia Pneumonia Pleural effusion CT Chest with right effusion and consolidation Continue supplemental oxygen Continue Rocephin and Azithromycin Pulm consulted, appreciate recs MAT added, incentive spirometry added NSTEMI, likely type II Troponin trended down, likely due to hypoxia Cardiology consulted, appreciate assistance Muscle spasms RUQ pain Fatty liver CT Abdomen without acute abnormalities Revealed enlarged, fatty liver Liver enzymes normal RUQ ultrasound negative Continue Flexeril, gabapentin, lidocaine added Likely due to effusion and irritation will check UA as well Encouraged outpatient follow up if no acute issue found Pyuria UA with WBC 11-25 Urine culture with no growth Repeat UA today Pulmonary nodule 1 cm nodule identified on CT Will need follow up CT in 6-8 weeks HTN Hypothyroidism Fibromyalgia Continue home meds DVT prophylaxis: HUGH Wilson MD Feb 08, 2021 11:50
[2021-02-08 12:15] VITALS: BP 146/90
[2021-02-08 12:15] LABS: BILIRUBIN,URINE NEGATIVE (NEGATIVE); CLARITY,URINE CLEAR; COLOR,URINE YELLOW; GLUCOSE, URINE (UA) NEGATIVE (NEGATIVE); KETONES,URINE NEGATIVE (NEGATIVE); LEUKOCYTE ESTERASE ,URINE NEGATIVE (NEGATIVE); NITRITE,URINE NEGATIVE (NEGATIVE); PROTEIN,URINE NEGATIVE (NEGATIVE)
[2021-02-08 12:28] LABS: BACTERIA,URINE NEGATIVE /HPF; WBC,URINE 0-2 /HPF
[2021-02-08] MEDS: LACTOBACILLUS ACIDOPHILUS (PROBIOTIC) CAPSULE PO SCH ×2 (12:59→18:09)
[2021-02-08] MEDS ORDERED: IOHEXOL 350 MG/ML 100 ML (OMNIPAQUE 350) VIAL IV ONE (13:30)
[2021-02-08] MEDS ORDERED: HOLD METFORMIN - RECEIVED CONTRAST 20 ML VIAL IV SCH (13:30)
[2021-02-08] MEDS ORDERED: NS 100 ML (IVPB) BAG IV ONE (13:30)
[2021-02-08] MEDS ORDERED: CATHETER FLUSH 10 ML SYR IV PRN (13:30)
[2021-02-08] MEDS: cefTRIAXone FOR IV USE 2,000 MG in WATER (STERILE) FOR INJECTION 20 ML IV SCH ×2 (13:47→13:48)
[2021-02-08] MEDS: CYCLOBENZAPRINE 10 MG (FLEXERIL) TAB PO PRN ×2 (13:52→23:09)
--- NOTE | 2021-02-08 14:57 | Diagnostic Imaging Report ---
EXAMINATION: CT Chest with intravenous contrast. TECHNIQUE: Multiple contiguous axial images were obtained through the chest after the uneventful administration of intravenous contrast. All CT scans use one or more of the following dose optimizing techniques: automated exposure control, MA and/or KvP adjustment based on a patient size and exam type, or iterative reconstruction. HISTORY: Right pulmonary mass evaluation. COMPARISON: Chest radiograph 02/06/2021. FINDINGS: Thyroid: The thyroid is normal. Mediastinum: Heart size is normal with small pericardial effusion. The aorta is normal in caliber. No suspicious lymphadenopathy. Lungs and airways: There is a large right pleural effusion. There is bibasilar atelectasis or consolidation. No pneumothorax. There is a 1.1 x 0.9 cm right upper lobe subpleural pulmonary nodule (series 3 image 39). Additional subcentimeter nodules are present. There are scattered areas of groundglass attenuation. Air bronchograms within the lung bases. Airways are otherwise patent. Upper abdomen: The subphrenic structures are normal. Musculoskeletal: Degenerative changes of the spine without suspicious osseous lesion or compression fracture. There are numerous sclerotic foci throughout the bones which may represent small bone islands. IMPRESSION: 1. A large right pleural effusion with bibasilar atelectasis or pneumonia. 2. A 1.0 cm average right upper lobe subpleural pulmonary nodule. Consider further evaluation with PET/CT or short-term CT follow-up in 3 months. Dictated by: Dictated on workstation # [id number]
[2021-02-08] MEDS ORDERED: RT-ALBUTEROL SULF 2.5 MG/3 ML PRE-MIX VIAL INH PRN (15:30)
[2021-02-08] MEDS: RT-ALBUTEROL SULF 2.5 MG/3 ML PRE-MIX VIAL INH SCH (15:35)
--- NOTE | 2021-02-08 18:54 | Progress Note - Cardiology ---
Cardiology SOAP Progress Note Subjective: Still has pain in the right, lower, lateral chest wall No palp or syncope No n/v/d Gen malaise Objective: I&O/Vital Signs 02/08/21 02/08/21 02/08/21 02/08/21 08:00 08:11 09:03 12:00 Temp 36.0 Pulse 81 Resp 18 B/P (MAP) 146/90 (108) Pulse Ox 99 95 99 91 O2 Delivery High Flow N/C High Flow N/C High Flow N/C Nasal Cannula O2 Flow Rate 4.00 5.00 4.00 2.00 02/08/21 02/08/21 12:15 15:45 Temp 36.0 36.6 Pulse 79 75 Resp 18 B/P (MAP) 137/89 (105) Pulse Ox 91 93 O2 Delivery High Flow N/C O2 Flow Rate 2.00 FiO2 28 02/08/21 00:00 Intake Total 2100 ml Balance 2100 ml Constitutional: AAO x 3, well-developed, well-nourished Respiratory: No accessory muscle use; other (diminished air entry at the R base; pleuritic pain experienced by the patient upon inspiration; poor inspiratory effort) Cardiovascular: regular rate-rhythm, S1 and S2, systolic murmur (faint MIGUE at card base) Gastrointestional: No tender; soft; No guarding, No rebound; audible bowel sounds Extremities: No clubbing, No cyanosis, No significant edema Neurologic/Psychiatric: oriented x 3, other (moves all limbs equally) Skin: warm/dry; No cool, No rash on exposed areas, No ulcerations on exposed areas Results/Procedures: Labs Laboratory Tests 02/08/21 05:40: White Blood Count 5.6, Red Blood Count 4.26, Hemoglobin 11.4L, Hematocrit 35, Mean Corpuscular Volume 83, Mean Corpuscular Hemoglobin 27, Mean Corpuscular Hemoglobin Concent 32, Red Cell Distribution Width 13.8, Platelet Count 137, Mean Platelet Volume 11.5, Immature Granulocyte % (Auto) 1, Neutrophils (%) (Auto) 60, Lymphocytes (%) (Auto) 30, Monocytes (%) (Auto) 8, Eosinophils (%) (Auto) 1, Basophils (%) (Auto) 1, Neutrophils # (Auto) 3.4, Lymphocytes # (Auto) 1.7, Monocytes # (Auto) 0.5, Eosinophils # (Auto) 0.0, Basophils # (Auto) 0.0, Immature Granulocyte # (Auto) 0.1, Sodium Level 138, Potassium Level 3.6, Chloride Level 106, Carbon Dioxide Level 21, Anion Gap 11, Blood Urea Nitrogen 10, Creatinine 0.83, Estimat Glomerular Filtration Rate > 60, BUN/Creatinine Ratio 12, Glucose Level 88, Calcium Level 8.6, Phosphorus Level 4.4, Magnesium Level 2.2 02/08/21 12:10: Urine Color YELLOW, Urine Clarity CLEAR, Urine pH 7.0, Urine Specific [place] 1.010L, Urine Protein NEGATIVE, Urine Glucose (UA) NEGATIVE, Urine Ketones NEGATIVE, Urine Nitrite NEGATIVE, Urine Bilirubin NEGATIVE, Urine Urobilinogen 0.2, Urine Leukocyte Esterase NEGATIVE, Urine RBC (Auto) NEGATIVE, Urine RBC NONE, Urine WBC 0-2, Urine Squamous Epithelial Cells 5-10, Urine Crystals NONE, Urine Bacteria NEGATIVE, Urine Casts NONE, Urine Mucus NEGATIVE, Urine Culture Indicated NO Microbiology 02/05/21 Urine Culture - Final, Complete NO GROWTH 02/05/21 MRSA Screen - Final, Complete MRSA not isolated Laboratory Tests 02/07/21 05:10 02/08/21 05:40 A/P: Assessment: Large RLL pneumonia with pleurisy and hypoxia Mild troponin elevation: type 2 [place] due to hypoxia due to RLL pnuemonia and dsypnea (due to pleurisy) Plan: * Monitor labs * Replace electrolytes as indicated * Cardiac status appears clinically stable ELDON RIOS MD [facility]S Feb 08, 2021 18:54
[2021-02-08] MEDS: ENOXAPARIN 40 MG/0.4 ML (LOVENOX) SYR SC SCH (20:49)
[2021-02-08] MEDS: LIDOCAINE PATCH REMOVAL TP SCH (21:43)
[2021-02-09] MEDS: RT-ALBUTEROL SULF 2.5 MG/3 ML PRE-MIX VIAL INH SCH ×4 (03:59→21:15)
[2021-02-09 04:54] LABS: BASOPHILS % (AUTO) 0 % (0-10); EOSINOPHILS # (AUTO) 0.1 10^3/uL (0.0-0.3); EOSINOPHILS % (AUTO) 1 % (0-10); HEMATOCRIT 36 % (35-52); HEMOGLOBIN 11.6 g/dL (11.5-16.0); LYMPHOCYTES # (AUTO) 1.9 10^3/uL (1.0-4.0); LYMPHOCYTES % (AUTO) 29 % (12-44); MEAN CORPUSCULAR HEMOGLOBIN 27 pg (25-34); MEAN CORPUSCULAR HGB CONC 33 g/dL (32-36); MEAN CORPUSCULAR VOLUME 83 fL (80-99); MEAN PLATELET VOLUME 11.3 fL (9.0-12.2); MONOCYTES # (AUTO) 0.5 10^3/uL (0.0-1.0); MONOCYTES % (AUTO) 8 % (0-12); NEUTROPHILS # (AUTO) 3.9 10^3/uL (1.8-7.8); NEUTROPHILS % (AUTO) 62 % (42-75); PLATELET COUNT 149 10^3/uL (130-400); WHITE BLOOD COUNT 6.4 10^3/uL (4.3-11.0)
[2021-02-09 05:05] LABS: CHLORIDE 106 MMOL/L (98-107); POTASSIUM 3.8 MMOL/L (3.6-5.0); SODIUM 140 MMOL/L (135-145)
[2021-02-09 05:07] LABS: CALCIUM 8.8 MG/DL (8.5-10.1); GLUCOSE 100 MG/DL (70-105)
[2021-02-09 05:09] LABS: CARBON DIOXIDE 23 MMOL/L (21-32)
[2021-02-09 05:11] LABS: CREATININE SERUM 0.87 MG/DL (0.60-1.30); GFR ESTIMATED > 60; PHOSPHORUS 4.6 MG/DL (2.3-4.7)
[2021-02-09 05:12] LABS: BUN/CREATININE RATIO 10
[2021-02-09 05:13] LABS: MAGNESIUM 2.1 MG/DL (1.6-2.4)
[2021-02-09] MEDS: MAGNESIUM 1 GM/100 ML IVPB 100 ML IV SCH (05:38)
[2021-02-09] MEDS: POTASSIUM CL 10MEQ/50ML IVPB 50 ML IV SCH (05:38)
[2021-02-09] MEDS: KCL 20 MEQ TAB (K-DUR) PO SCH (05:39)
[2021-02-09] MEDS: LEVOTHYROXINE 25 MCG (LEVOTHROID) TAB PO SCH (05:50)
--- NOTE | 2021-02-09 07:08 | Pulmonary Consultation ---
History of Present Illness History of Present Illness Date Seen by Provider: Feb 09, 2021 Time Seen by Provider: 06:25 Date of Admission Allergies and Home Medications Allergies Coded Allergies: codeine (Unverified Allergy, Unknown, 02/05/21) Home Medications Candesartan/Hydrochlorothiazid 1 Each Tablet, 1 EA PO DAILY, (Reported) Cyclobenzaprine HCl 10 Mg Tablet, 10 MG PO TID PRN for MUSCLE SPASMS, (Reported) Duloxetine HCl 60 Mg Capsule.dr, 60 MG PO DAILY, (Reported) Gabapentin 300 Mg Capsule, 300 MG PO BID, (Reported) Levothyroxine Sodium 25 Mcg Tablet, 25 MCG PO DAILY, (Reported) Tramadol HCl 50 Mg Tablet, 50-100 MG PO TID PRN for PAIN-MODERATE (5-7), (Reported) [Neuriva] , 1 EA PO DAILY, (Reported) Past [id number] Hx Past Med/Social Hx: Reviewed Nursing Past Med/Soc Hx Patient Social History Smoking Status: Never a Smoker Have you traveled recently?: No Alcohol Use?: No Review of Systems Time Seen by Provider: 06:25 Sepsis Event Evaluation Height, Weight, BMI Height: '" Weight: lbs. oz. kg; 30.10 BMI Method: Exam Exam Vital Signs Date Time Temp Pulse Resp B/P (MAP) Pulse Ox O2 Delivery O2 Flow Rate FiO2 02/09/21 07:01 91 Nasal Cannula 2.00 02/09/21 03:46 35.7 Automatic Cuff 02/09/21 00:00 35.1 78 18 146/88 (107) 94 High Flow N/C 2.00 02/08/21 20:49 93 High Flow N/C 2.00 02/08/21 15:45 36.6 75 18 137/89 (105) 93 High Flow N/C 2.00 02/08/21 12:15 36.0 79 91 28 02/08/21 12:00 91 Nasal Cannula 2.00 02/08/21 09:03 99 High Flow N/C 4.00 02/08/21 08:11 36.0 81 18 146/90 (108) 95 High Flow N/C 5.00 02/08/21 08:00 99 High Flow N/C 4.00 I & O 02/09/21 07:00 Intake Total 2340 ml Output Total 1000 ml Balance 1340 ml Height & Weight Height: '" Weight: lbs. oz. kg; 30.10 BMI Method: General Appearance: No Apparent Distress, WD/WN HEENT: PERRL/EOMI, Pharynx Normal Neck: Normal Inspection, Supple Respiratory: No Accessory Muscle Use, Decreased Breath Sounds, Other (nasal cannula off, resting comfortably) Cardiovascular: Regular Rate, Rhythm, No Murmur Extremity: Normal Inspection, Non Tender, No Pedal Edema Neurologic/Psychiatric: Alert, Oriented x3 Skin: Other (skin on right flank normal, no rash or lesions) Results Lab Laboratory Tests 02/08/21 05:40 02/09/21 04:45 Assessment/Plan Assessment/Plan Acute hypoxia with right pleural effusion -chest US for thoracentesis -Monitor Pneumonia -Continue Abx NSTEMI Fatty liver Pulmonary nodule -Repeat CT 6-8wks HTN Hypothyroidism Fibromyalgia Continue home meds DVT prophylaxis: Lovenox LOREE NUNN DO Feb 09, 2021 07:08
[2021-02-09] MEDS ORDERED: LIDOCAINE 1% INJ 20 ML 20 ML VIAL ONE (07:55)
[2021-02-09] MEDS: SENNOSIDES 8.6 MG (SENOKOT) TAB PO SCH (08:15)
[2021-02-09] MEDS: GABAPENTIN 300 MG (NEURONTIN) CAP PO SCH ×2 (08:15→20:01)
[2021-02-09] MEDS: CARVEDILOL 6.25 MG (COREG) TAB PO SCH ×2 (08:15→20:01)
[2021-02-09] MEDS: DULoxetine 30 MG (CYMBALTA) CAP PO SCH (08:15)
[2021-02-09] MEDS: LACTOBACILLUS ACIDOPHILUS (PROBIOTIC) CAPSULE PO SCH ×3 (08:16→17:48)
[2021-02-09] MEDS: ASPIRIN 81 MG CHEW (CHILDREN'S ASA) PO SCH (08:16)
[2021-02-09] MEDS: VALSARTAN 160 MG (DIOVAN) TABLET PO SCH (08:16)
[2021-02-09] MEDS: AZITHROMYCIN 250 MG TAB (ZITHROMAX) PO SCH (08:16)
[2021-02-09] MEDS: oxyCODONE/APAP 10/325MG (PERCOCET 10) TABLET PO PRN ×2 (08:17→21:42)
[2021-02-09] MEDS: NS IV 1000 ML 1,000 ML IV SCH ×2 (08:39→21:42)
--- NOTE | 2021-02-09 11:25 | Progress Note - Cardiology ---
Cardiology SOAP Progress Note Objective: I&O/Vital Signs 02/09/21 02/10/21 23:48 02:13 Temp 35.8 Pulse 96 Resp 19 B/P (MAP) 178/84 (115) Pulse Ox 94 94 O2 Delivery High Flow N/C Nasal Cannula O2 Flow Rate 2.00 3.00 02/10/21 00:00 Intake Total 2876 ml Balance 2876 ml Constitutional: AAO x 3, well-developed, well-nourished Respiratory: No accessory muscle use; other (diminished air entry at the R base; pleuritic pain experienced by the patient upon inspiration; poor inspiratory effort) Cardiovascular: regular rate-rhythm, S1 and S2, systolic murmur (faint MIGUE at card base) Gastrointestional: No tender; soft; No guarding, No rebound; audible bowel sounds Extremities: No clubbing, No cyanosis, No significant edema Neurologic/Psychiatric: oriented x 3, other (moves all limbs equally) Skin: warm/dry; No cool, No rash on exposed areas, No ulcerations on exposed areas Results/Procedures: Labs Laboratory Tests 02/10/21 05:30: White Blood Count 5.5, Red Blood Count 4.28, Hemoglobin 11.6, Hematocrit 36, Mean Corpuscular Volume 83, Mean Corpuscular Hemoglobin 27, Mean Corpuscular Hemoglobin Concent 33, Red Cell Distribution Width 14.2, Platelet Count 144, Mean Platelet Volume 11.4, Immature Granulocyte % (Auto) 1, Neutrophils (%) (Auto) 67, Lymphocytes (%) (Auto) 24, Monocytes (%) (Auto) 7, Eosinophils (%) (Auto) 1, Basophils (%) (Auto) 0, Neutrophils # (Auto) 3.7, Lymphocytes # (Auto) 1.3, Monocytes # (Auto) 0.4, Eosinophils # (Auto) 0.0, Basophils # (Auto) 0.0, Immature Granulocyte # (Auto) 0.1, Sodium Level 140, Potassium Level 3.5L, Chloride Level 107, Carbon Dioxide Level 23, Anion Gap 10, Blood Urea Nitrogen 8, Creatinine 0.84, Estimat Glomerular Filtration Rate > 60, BUN/Creatinine Ratio 10, Glucose Level 98, Calcium Level 8.8, Phosphorus Level 4.5, Magnesium Level 2.1, Procalcitonin 0.25H Microbiology 02/05/21 Urine Culture - Final, Complete NO GROWTH 02/05/21 MRSA Screen - Final, Complete MRSA not isolated A/P: Assessment: Large RLL pneumonia with pleurisy and hypoxia Mild troponin elevation: type 2 [place] due to hypoxia due to RLL pnuemonia and dsypnea (due to pleurisy) Plan: * Monitor labs * Replace electrolytes as indicated * Cardiac status appears clinically stable * Thoracentesis today by LUCIO Kulkarni [facility] Feb 09, 2021 11:25
--- NOTE | 2021-02-09 11:49 | Progress Note - Hospitalist ---
Subjective HPI/CC On Admission Date Seen by Provider: Feb 09, 2021 Time Seen by Provider: 11:38 Jennifer Cervantes is a 60-year-old female with past medical history of hypertension, hypothyroidism, fibromyalgia, who presented to [facility] in [place] with right- sided back pain and right upper quadrant abdominal pain. She reports that the pain started last night. She denies any fevers or chills. She denies any shortness of breath or cough. She denies any chest pain. She denies any nausea or vomiting. She denies any diarrhea. She denies any dysuria, frequency, or urgency. She denies any hematuria. Subjective/Events-last exam Pt reports feeling better today but still having right sided flank pain. Reported to me yesterday it was more so in the back and today says it's mostly in the front upper abdomen. When she PT saw her she states it was lower right side. CT revealed pleural effusion on right, discussed with patient that it is most likely related to irritation from effusion. Objective Exam Vital Signs Vital Signs Date Time Temp Pulse Resp B/P (MAP) Pulse Ox O2 Delivery O2 Flow Rate FiO2 02/09/21 08:00 36.3 75 18 147/99 (115) 96 High Flow N/C 5.00 02/08/21 12:15 28 Capillary Refill : General Appearance: No Apparent Distress, WD/WN Respiratory: No Accessory Muscle Use, Decreased Breath Sounds, Other (on 2lpm) Cardiovascular: Regular Rate, Rhythm, No Murmur Gastrointestinal: Normal Bowel Sounds, Non Tender, Soft; No Distended, No Guarding Extremity: No Calf Tenderness Neurologic/Psychiatric: Alert, Oriented x3 Results/Procedures Lab Laboratory Tests 02/09/21 04:45 Patient resulted labs reviewed. Imaging: Reviewed Imaging Report Assessment/Plan Assessment and Plan Assess & Plan/Chief Complaint Acute respiratory failure with hypoxia Pneumonia Pleural effusion CT Chest with right effusion and consolidation- usg ordered for marking for possible thoracentesis Continue supplemental oxygen Continue Rocephin and Azithromycin Pulm consulted, appreciate recs MA and incentive spirometry NSTEMI, likely type II Troponin trended down, likely due to hypoxia Cardiology consulted, appreciate assistance Muscle spasms RUQ pain Fatty liver CT Abdomen without acute abnormalities (5mm cyst of right kidney noted) Revealed enlarged, fatty liver Liver enzymes normal RUQ ultrasound negative, UA negative Continue Flexeril, gabapentin, lidocaine added Likely due to effusion and irritation Encouraged outpatient follow up Pyuria UA with WBC 11-25 Urine culture with no growth Repeat UA negative Pulmonary nodule 1 cm nodule identified on CT, informed patient of importance of following this up Will need follow up CT in 6-8 weeks HTN Hypothyroidism Fibromyalgia Continue home meds DVT prophylaxis: HUGH Wilson MD Feb 09, 2021 11:49
--- NOTE | 2021-02-09 13:18 | Progress Note - Cardiology ---
Cardiology SOAP Progress Note Subjective: R flank and R lower chest pain is somewhat less intense but still considerable No cp or palp or syncope Shortness of breath with activity Gen malaise and weakness Objective: I&O/Vital Signs 02/09/21 02/09/21 02/09/21 03:46 07:01 08:00 Temp 35.7 36.3 Pulse 75 Resp 18 B/P (MAP) Automatic Cuff 147/99 (115) Pulse Ox 91 96 O2 Delivery Nasal Cannula High Flow N/C O2 Flow Rate 2.00 5.00 02/09/21 00:00 Intake Total 2240 ml Output Total 1000 ml Balance 1240 ml Constitutional: AAO x 3, well-developed, well-nourished Respiratory: No accessory muscle use; other (diminished air entry at the R base; pleuritic pain experienced by the patient upon inspiration; poor inspiratory effort) Cardiovascular: regular rate-rhythm, S1 and S2, systolic murmur (faint MIGUE at card base) Gastrointestional: No tender; soft; No guarding, No rebound; audible bowel sounds Extremities: No clubbing, No cyanosis, No significant edema Neurologic/Psychiatric: oriented x 3, other (moves all limbs equally) Skin: warm/dry; No cool, No rash on exposed areas, No ulcerations on exposed areas Results/Procedures: Labs Laboratory Tests 02/09/21 04:45: White Blood Count 6.4, Red Blood Count 4.32, Hemoglobin 11.6, Hematocrit 36, Mean Corpuscular Volume 83, Mean Corpuscular Hemoglobin 27, Mean Corpuscular Hemoglobin Concent 33, Red Cell Distribution Width 13.9, Platelet Count 149, Mean Platelet Volume 11.3, Immature Granulocyte % (Auto) 1, Neutrophils (%) (Auto) 62, Lymphocytes (%) (Auto) 29, Monocytes (%) (Auto) 8, Eosinophils (%) (Auto) 1, Basophils (%) (Auto) 0, Neutrophils # (Auto) 3.9, Lymphocytes # (Auto) 1.9, Monocytes # (Auto) 0.5, Eosinophils # (Auto) 0.1, Basophils # (Auto) 0.0, Immature Granulocyte # (Auto) 0.0, Sodium Level 140, Potassium Level 3.8, Chloride Level 106, Carbon Dioxide Level 23, Anion Gap 11, Blood Urea Nitrogen 9, Creatinine 0.87, Estimat Glomerular Filtration Rate > 60, BUN/Creatinine Ratio 10, Glucose Level 100, Calcium Level 8.8, Phosphorus Level 4.6, Magnesium Level 2.1 Microbiology 02/05/21 Urine Culture - Final, Complete NO GROWTH 02/05/21 MRSA Screen - Final, Complete MRSA not isolated Laboratory Tests 02/08/21 05:40 02/09/21 04:45 A/P: Assessment: Large RLL pneumonia with pleurisy and hypoxia Mild troponin elevation: type 2 [place] due to hypoxia due to RLL pnuemonia and dsypnea (due to pleurisy) Plan: * Monitor labs * Replace electrolytes as indicated * Cardiac status appears clinically stable * Thoracentesis planned today by ELDON Riley MD FACP [facility] Feb 09, 2021 13:18
--- NOTE | 2021-02-09 13:22 | Physical Therapy Evaluation ---
PT Evaluation-General Medical Diagnosis Admission Date Feb 05, 2021 at 00:43 Medical Diagnosis: pneumonia Onset Date: Feb 05, 2021 Therapy Diagnosis Therapy Diagnosis: debility Precautions Precautions/Isolations: Fall Prevention, Standard Precautions Referral Physician: Alicia Reason for Referral: Evaluation/Treatment Medical History Pertinent Medical History: HTN, Hypothroidism Current History [facility] with right flank pain Reviewed History: Yes Social History Home: Single Level Current Living Status: Spouse Prior Prior Level of Function SCALE: Activities may be completed with or without assistive devices. 8-Xxpinrequj-gbihdux completes the activity by him/herself with no assistance from a helper. 5-Set-up or Clean-up Assistance-helper sets up or cleans up; patient completes activity. [place] assists only prior to or following the activity. 4-Supervision or Touching Assistance-helper provides verbal cues and/or touching/steadying and/or contact guard assistance as patient completes activity. Assistance may be provided throughout the activity or intermittently. 3-Partial/Moderate Assistance-helper does LESS THAN HALF the effort. [place] lifts, holds or supports trunk or limbs, but provides less than half the effort. 2-Substantial/Maximal Assistance-helper does MORE THAN HALF the effort. [place] lifts or holds trunk or limbs and provides more than half the effort. 9-Ndgfljfwu-qimkhz does ALL the effort. Patient does none of the effort to complete the activity. Or, the assistance of 2 or more helpers is required for the patient to complete the activity. If activity was not attempted, code reason: 7-Patient Refused. 9-Not Applicable-not attempted and the patient did not perform the activity before the current illness, exacerbation or injury. 10-Not Attempted due to Environmental Limitations-(lack of equipment, weather restraints, etc.). 88-Not Attempted due to Medical Conditions or Safety Concerns. Bed Mobility: 6 Transfers (B,C,W/C): 6 Gait: 6 Stairs: 6 Indoor Mobility (Ambulation): Independent Stairs: Independent Prior Devices Use: None PT Evaluation-Current Subjective Patient agrees to PT. Pain Numeric Pain Scale: 10-Worst Possible Pain Location: Right Location Body Site: Side Pain Description: Stabbing Objective Patient Orientation: Normal For Age Attachments: IV ROM/Strength ROM Lower Extremities bilateral LE WFL Strength Lower Extremities 4/5 grossly bilateral LE Integumentary/Posture Integumentary refer to nursing notes Bowel Incontinence: No Bladder Incontinence: No Posture WFL Neuromuscular (Tone, Coordination, Reflexes) grossly intact Sensory Vision: Functional Hearing: Functional Transfers Roll Left to Right (QC): 6 Lying to Sitting/Side of Bed(Q: 6 Sit to Stand (QC): 6 Chair/Bho-je-Mjnud Xfer(QC): 6 Gait Does the Patient Walk?: Yes Mode of Locomotion: Walk Anticipated Mode of Locomotion: Walk Walk 10 feet (QC): 6 Walk 50 ft with 2 Turns(QC): 6 Walk 150 ft (QC): 6 Distance: 300' Gait Assistive Device: None Comments/Gait Description increase right flank pain with weight bearing right LE Balance Sitting Static: Normal Sitting Dynamic: Normal Standing Static: Fair Standing Dynamic: Fair Assessment/Needs 60 y.o. female, is currently at [facility] with gross motor skills. Patient remains on O2 due to decreased SAO2 with activity. Patient has increase right flank pain with activity with noted pain with right LE weight bearing. Physician notified of findings. Rehab Potential: Fair PT Plan Treatment/Plan Treatment Plan: Discontinue PT Treatment Duration: Feb 09, 2021 Frequency: 1 time per week Estimated Hrs Per Day: .25 hour per day Patient and/or Family Agrees t: Yes Time/GCodes Time In: 1110 Time Out: 1119 Total Billed Treatment Time: 9 Total Billed Treatment 1 visit EVMod 9 min JAIRO VALDOVINOS PT Feb 09, 2021 13:22
[2021-02-09] MEDS: cefTRIAXone FOR IV USE 2,000 MG in WATER (STERILE) FOR INJECTION 20 ML IV SCH (13:47)
--- NOTE | 2021-02-09 14:41 | Diagnostic Imaging Report ---
INDICATION: Pneumonia COMPARISON: None available. FINDINGS: There is no appreciable left-sided pleural fluid. There is a small simple-appearing right pleural effusion present. Estimated volume is 227 mL. IMPRESSION: Small right pleural effusion. Dictated by: Dictated on workstation # [id number]
--- NOTE | 2021-02-09 15:05 | Occupational Therapy Eval ---
OT Evaluation-General/PLF Medical Diagnosis Admission Date Feb 05, 2021 at 00:43 Medical Diagnosis: Acute respiratory failure with hypoxia secondary to pneumonia Onset Date: Feb 05, 2021 Therapy Diagnosis Therapy Diagnosis: Weakness, Decreased ADL skills Precautions Precautions/Isolations: Fall Prevention, Standard Precautions Weight Bear Status Weight Bearing Restriction: Weight Bearing/Tolerated Referral Physician: Alicia Referral Reason: Activity Tolerance, Self Care, Evaluation/Treatment, Strengthening/ROM Medical History Pertinent Medical History: HTN, Hypothroidism Additional Medical History Fibromyalgia Reviewed History: Yes Social History Home: Single Level Current Living Status: Spouse Entry Into Home: Level Entry ADL-Prior Level of Function SCALE: Activities may be completed with or without assistive devices. 5-Otalzvevue-ntkkarw completes the activity by him/herself with no assistance from a helper. 5-Set-up or Clean-up Assistance-helper sets up or cleans up; patient completes activity. [place] assists only prior to or following the activity. 4-Supervision or Touching Assistance-helper provides verbal cues and/or touching/steadying and/or contact guard assistance as patient completes activity. Assistance may be provided throughout the activity or intermittently. 3-Partial/Moderate Assistance-helper does LESS THAN HALF the effort. [place] lifts, holds or supports trunk or limbs, but provides less than half the effort. 2-Substantial/Maximal Assistance-helper does MORE THAN HALF the effort. [place] lifts or holds trunk or limbs and provides more than half the effort. 6-Sgdylfglb-zbjmhu does ALL the effort. Patient does none of the effort to complete the activity. Or, the assistance of 2 or more helpers is required for the patient to complete the activity. If activity was not attempted, code reason: 7-Patient Refused. 9-Not Applicable-not attempted and the patient did not perform the activity before the current illness, exacerbation or injury. 10-Not Attempted due to Environmental Limitations-(lack of equipment, weather restraints, etc.). 88-Not Attempted due to Medical Conditions or Safety Concerns. ADL PLOF Comments Pt. states that she was independent with daily tasks. Pt. states that she has been experiencing memory issues for approximately 6 months. Pt. reports that she drives. She lives with her spouse, and her mother who just returned to the home from a senior living. Self Care: Unknown Functional Cognition: Unknown DME/Equipment Comments Pt. reports that she does not use a walker and does not have one. Drive Self: Yes OT Current Status Subjective Pt. states that she is having pain in her abdomen, in the upper right quadrant. She reports 7/10. She states that the pain is "not as sharp" as it was, but is more frequent. Pt. reports pain with standing and movement/palpation. Pt. has had pain medication. PT notified physician of findings. Nursing aware of pain. Appearance Pt. in bed. Smiles at OT. Agrees to work. Mental Status/Objective Patient Orientation: Person Pt. does have difficulty remembering exact dates and testing. Pt. does not remember when she admitted to hospital, or specific tests that were ran. She does not remember what she has been told. Attachments: Oxygen Current Upper Extremity ROM WFL ADL-Treatment On/Off Footwear (QC): 4 Other Treatments Pt. requires increased time to roll in bed, and increased time to transfer supine-sit. Pt. is able to do this with Mod I, but she is having difficulty with movement and winces with pain. Pt. holds her abdomen when she moves, and indicates that this is painful. Partial co-treatment with PT completed due to pain reported. Pt. practiced doffing/donning slipper socks sitting on side of bed. She is able to do this with SBA and increased time. PT focused on mobility and distance walked (150 feet), while OT assessed ADL skills, pain, and hand placement. Pt. transferred to chair after ambulation. All needs met. Education OT Patient Education: Correct positioning, Modified ADL techniques, Progress toward Goal/Update tx plan, Purpose of tx/functional activities, Reviewed precautions, Rehab process, Transfer techniques Teaching Recipient: Patient Teaching Methods: Demonstration, Discussion Response to Teaching: Verbalize Understanding, Return Demonstration OT Usp Goals Usp Goals Time Frame: Feb 16, 2021 Eating (QC): 6 Oral Hygiene (QC): 6 Toileting Hygiene (QC): 6 Shower/Bathe Self (QC): 6 Upper Body Dressing (QC): 6 Lower Body Dressing (QC): 6 On/Off Footwear (QC): 6 Additional Goals: 1-Demonstrate ADL Tasks, 2-Verbalize Understanding, 3- ImproveStrength/José Migule 1=Demonstrate adherence to instructed precautions during ADL tasks. 2=Patient will verbalize/demonstrate understanding of assistive devices/modifications for ADL. 3=Patient will improve strength/tolerance for activity to enable patient to perform ADL's. OT Education/Plan Problem List/Assessment Assessment: Decreased Activ Tolerance, Impaired I ADL's, Impaired Self-Care Skills Discharge Recommendations Plan/Recommendations: Continue POC Treatment Plan/Plan of Care Treatment,Training & Education: Yes Patient would benefit from OT for education, treatment and training to promote independence in ADL's, mobility, safety and/or upper extremity function for ADL's. Plan of Care: ADL Retraining, Functional Mobility, UE Funct Exercise/Act Treatment Duration: Feb 16, 2021 Frequency: 5 times per week Estimated Hrs Per Day: .25 hour per day Agreement: Yes Rehab Potential: Good Time/GCodes Start Time: 10:55 Stop Time: 11:19 Total Time Billed (hr/min): 24 Billed Treatment Time 1, EVM x 10minutes, FA x 14minutes Co-treatment with PT from 0160-3028 Please see above note for designated roles. RAY KEARNEY OT Feb 09, 2021 15:05
[2021-02-09] MEDS: CYCLOBENZAPRINE 10 MG (FLEXERIL) TAB PO PRN (20:01)
[2021-02-09] MEDS: ENOXAPARIN 40 MG/0.4 ML (LOVENOX) SYR SC SCH (20:02)
[2021-02-09] MEDS: LIDOCAINE PATCH REMOVAL TP SCH (21:45)
[2021-02-10] MEDS: RT-ALBUTEROL SULF 2.5 MG/3 ML PRE-MIX VIAL INH SCH ×4 (02:13→19:06)
[2021-02-10 05:44] LABS: BASOPHILS % (AUTO) 0 % (0-10); EOSINOPHILS % (AUTO) 1 % (0-10); HEMATOCRIT 36 % (35-52); HEMOGLOBIN 11.6 g/dL (11.5-16.0); LYMPHOCYTES # (AUTO) 1.3 10^3/uL (1.0-4.0); LYMPHOCYTES % (AUTO) 24 % (12-44); MEAN CORPUSCULAR HEMOGLOBIN 27 pg (25-34); MEAN CORPUSCULAR HGB CONC 33 g/dL (32-36); MEAN CORPUSCULAR VOLUME 83 fL (80-99); MEAN PLATELET VOLUME 11.4 fL (9.0-12.2); MONOCYTES # (AUTO) 0.4 10^3/uL (0.0-1.0); MONOCYTES % (AUTO) 7 % (0-12); NEUTROPHILS # (AUTO) 3.7 10^3/uL (1.8-7.8); NEUTROPHILS % (AUTO) 67 % (42-75); PLATELET COUNT 144 10^3/uL (130-400); WHITE BLOOD COUNT 5.5 10^3/uL (4.3-11.0)
[2021-02-10 05:56] LABS: CHLORIDE 107 MMOL/L (98-107); POTASSIUM 3.5 MMOL/L (3.6-5.0); SODIUM 140 MMOL/L (135-145)
[2021-02-10 05:57] LABS: CALCIUM 8.8 MG/DL (8.5-10.1); GLUCOSE 98 MG/DL (70-105)
[2021-02-10 05:59] LABS: CARBON DIOXIDE 23 MMOL/L (21-32)
[2021-02-10 06:01] LABS: CREATININE SERUM 0.84 MG/DL (0.60-1.30); GFR ESTIMATED > 60; PHOSPHORUS 4.5 MG/DL (2.3-4.7)
[2021-02-10 06:02] LABS: BUN/CREATININE RATIO 10
[2021-02-10 06:03] LABS: MAGNESIUM 2.1 MG/DL (1.6-2.4)
[2021-02-10] MEDS: POTASSIUM CL 10MEQ/50ML IVPB 50 ML IV SCH (06:09)
[2021-02-10] MEDS: KCL 20 MEQ TAB (K-DUR) PO SCH (06:10)
[2021-02-10] MEDS: MAGNESIUM 1 GM/100 ML IVPB 100 ML IV SCH (06:10)
[2021-02-10] MEDS: LEVOTHYROXINE 25 MCG (LEVOTHROID) TAB PO SCH (06:28)
--- NOTE | 2021-02-10 06:39 | Pulmonary Progress Note ---
Subjective Time Seen by a Provider: 06:38 Sepsis Event Evaluation Height, Weight, BMI Height: '" Weight: lbs. oz. kg; 30.10 BMI Method: Exam Exam Vital Signs Date Time Temp Pulse Resp B/P (MAP) Pulse Ox O2 Delivery O2 Flow Rate FiO2 02/10/21 02:13 94 Nasal Cannula 3.00 02/09/21 23:48 35.8 96 19 178/84 (115) 94 High Flow N/C 2.00 02/09/21 21:15 89 Nasal Cannula 2.00 02/09/21 20:00 96 High Flow N/C 2.00 02/09/21 20:00 95 178/100 (126) 02/09/21 15:22 36.6 77 19 157/90 (112) 96 High Flow N/C 2.00 02/09/21 14:41 93 Nasal Cannula 2.00 02/09/21 08:00 96 High Flow N/C 2.00 02/09/21 08:00 36.3 75 18 147/99 (115) 96 High Flow N/C 5.00 02/09/21 07:01 91 Nasal Cannula 2.00 I & O 02/10/21 06:59 Intake Total 4066 ml Balance 4066 ml Height & Weight Height: '" Weight: lbs. oz. kg; 30.10 BMI Method: General Appearance: No Apparent Distress, WD/WN HEENT: PERRL/EOMI, Pharynx Normal Neck: Normal Inspection, Supple Respiratory: No Accessory Muscle Use, Decreased Breath Sounds, Other (nasal cannula off, resting comfortably) Cardiovascular: Regular Rate, Rhythm, No Murmur Extremity: Normal Inspection, Non Tender, No Pedal Edema Neurologic/Psychiatric: Alert, Oriented x3 Skin: Other (skin on right flank normal, no rash or lesions) Results Lab Laboratory Tests 02/09/21 04:45 02/10/21 05:30 Assessment/Plan Assessment/Plan Acute hypoxia with right pleural effusion -chest US for thoracentesis -- shows only small right effusion -Give 60mg of Lasix IV x 1 -Repeat CXR -Check echo -Monitor Pneumonia -Continue Abx -Check PCT NSTEMI Fatty liver Pulmonary nodule -Repeat CT 6-8wks HTN Hypothyroidism Fibromyalgia Continue home meds DVT prophylaxis: LOREE Gu DO Feb 10, 2021 06:39
[2021-02-10] MEDS ORDERED: FUROSEMIDE 40 MG/4 ML INJ (LASIX) IVP ONE (06:45)
--- NOTE | 2021-02-10 07:46 | Diagnostic Imaging Report ---
INDICATION: Shortness of air. COMPARISON: 02/06/2021 FINDINGS: Single frontal radiographic view of the chest was obtained and demonstrates mild right basilar effusion and associated right basilar patchy airspace opacity. Left lung is relatively clear. There is no large effusion on the left. No pneumothorax is seen on either side. Cardiac silhouette and pulmonary vasculature are within normal limits. Osseous structures show no gross acute abnormalities. IMPRESSION:. Mild right basilar effusion with associated atelectasis and/or infiltrate. Dictated by: Dictated on workstation # [id number]
[2021-02-10] MEDS ORDERED: KCL 20 MEQ TAB (K-DUR) PO ONE ×2 (08:00)
[2021-02-10] MEDS: VALSARTAN 160 MG (DIOVAN) TABLET PO SCH (08:39)
[2021-02-10] MEDS: GABAPENTIN 300 MG (NEURONTIN) CAP PO SCH ×2 (08:39→19:34)
[2021-02-10] MEDS: SENNOSIDES 8.6 MG (SENOKOT) TAB PO SCH (08:39)
[2021-02-10] MEDS: DULoxetine 30 MG (CYMBALTA) CAP PO SCH (08:39)
[2021-02-10] MEDS: CARVEDILOL 6.25 MG (COREG) TAB PO SCH ×2 (08:39→19:35)
[2021-02-10] MEDS: AZITHROMYCIN 250 MG TAB (ZITHROMAX) PO SCH (08:39)
[2021-02-10] MEDS: ASPIRIN 81 MG CHEW (CHILDREN'S ASA) PO SCH (08:39)
[2021-02-10] MEDS: LACTOBACILLUS ACIDOPHILUS (PROBIOTIC) CAPSULE PO SCH ×3 (08:39→18:11)
--- NOTE | 2021-02-10 09:54 | Progress Note - Cardiology ---
Cardiology SOAP Progress Note Subjective: Sitting up in bed Continues to c/o lower, lateral, right sided chest pain, unchanged No c/o palpitations C/O SOB, unchanged Objective: I&O/Vital Signs 02/11/21 02/11/21 02/11/21 02/11/21 00:00 01:16 08:24 08:30 Temp 35.9 36.6 Pulse 72 78 Resp 18 20 B/P (MAP) 133/86 (102) 118/82 (94) Pulse Ox 92 92 98 O2 Delivery High Flow N/C Nasal Cannula High Flow N/C High Flow N/C O2 Flow Rate 2.00 2.00 2.00 2.00 02/11/21 00:00 Intake Total 3050 ml Balance 3050 ml Constitutional: AAO x 3, well-developed, well-nourished Respiratory: No accessory muscle use; other (diminished air entry at the R base; pleuritic pain experienced by the patient upon inspiration; poor inspiratory effort; coarse breath sounds left base) Cardiovascular: regular rate-rhythm, S1 and S2, systolic murmur (faint MIGUE at card base) Gastrointestional: No tender; soft; No guarding, No rebound; audible bowel sounds Extremities: No clubbing, No cyanosis, No significant edema Neurologic/Psychiatric: oriented x 3, other (moves all limbs equally) Skin: warm/dry; No cool, No rash on exposed areas, No ulcerations on exposed areas Results/Procedures: Labs Laboratory Tests 02/11/21 05:11: White Blood Count 6.7, Red Blood Count 4.73, Hemoglobin 13.0, Hematocrit 39, Mean Corpuscular Volume 83, Mean Corpuscular Hemoglobin 28, Mean Corpuscular Hemoglobin Concent 33, Red Cell Distribution Width 14.1, Platelet Count 188, Mean Platelet Volume 11.7, Immature Granulocyte % (Auto) 2, Neutrophils (%) (A uto) 62, Lymphocytes (%) (Auto) 26, Monocytes (%) (Auto) 9, Eosinophils (%) (Auto) 1, Basophils (%) (Auto) 0, Neutrophils # (Auto) 4.2, Lymphocytes # (Auto) 1.8, Monocytes # (Auto) 0.6, Eosinophils # (Auto) 0.1, Basophils # (Auto) 0.0, Immature Granulocyte # (Auto) 0.1, Neutrophils % (Manual) , Sodium Level 140, Potassium Level 4.1, Chloride Level 106, Carbon Dioxide Level 22, Anion Gap 12, Blood Urea Nitrogen 9, Creatinine 0.90, Estimat Glomerular Filtration Rate > 60, BUN/Creatinine Ratio 10, Glucose Level 100, Calcium Level 9.2, Phosphorus Level 4.8H, Magnesium Level 2.3 Microbiology 02/05/21 Urine Culture - Final, Complete NO GROWTH 02/05/21 MRSA Screen - Final, Complete MRSA not isolated Procedures NAME: [facility] REC#: [id number] PT STATUS: ADM IN : 1960 PHYSICIAN: LOREE NUNN DO ADMIT DATE: 02/05/21 Draft Date of Exam:02/10/21 CHEST 1 VIEW, AP/PA ONLY INDICATION: Shortness of air. COMPARISON: 02/06/2021 FINDINGS: Single frontal radiographic view of the chest was obtained and demonstrates mild right basilar effusion and associated right basilar patchy airspace opacity. Left lung is relatively clear. There is no large effusion on the left. No pneumothorax is seen on either side. Cardiac silhouette and pulmonary vasculature are within normal limits. Osseous structures show no gross acute abnormalities. IMPRESSION:. Mild right basilar effusion with associated atelectasis and/or infiltrate. Dictated on workstation # [id number] Dict: 02/10/21 0742 Trans: 02/10/21 0745 CVB [id number] Interpreted by: DALE WALLACE MD Electronically signed by: A/P: Assessment: Large RLL pneumonia with pleurisy and hypoxia Mild troponin elevation: type 2 OR due to hypoxia due to RLL pnuemonia and dsypnea (due to pleurisy) Plan: * Monitor labs * Replace electrolytes as indicated * Cardiac status appears clinically stable LUCIO CASTAÑEDA Feb 10, 2021 09:54
--- NOTE | 2021-02-10 10:54 | Progress Note - Hospitalist ---
Subjective HPI/CC On Admission Date Seen by Provider: Feb 10, 2021 Time Seen by Provider: 10:51 Jennifer Cervantes is a 60-year-old female with past medical history of hypertension, hypothyroidism, fibromyalgia, who presented to [facility] in [place] with right- sided back pain and right upper quadrant abdominal pain. She reports that the pain started last night. She denies any fevers or chills. She denies any shortness of breath or cough. She denies any chest pain. She denies any nausea or vomiting. She denies any diarrhea. She denies any dysuria, frequency, or urgency. She denies any hematuria. Subjective/Events-last exam Pt reports doing better today. Had large BM. Pain in RUQ improved. Discussed again with patient negative CT abdomen, usg of liver, UA, and CT with pleural effusion. Recommended outpatient follow up for this and she is agreeable. Objective Exam Vital Signs Vital Signs Date Time Temp Pulse Resp B/P (MAP) Pulse Ox O2 Delivery O2 Flow Rate FiO2 02/10/21 10:12 93 Nasal Cannula 2.00 02/10/21 08:00 36.7 90 18 185/102 (129) 02/08/21 12:15 28 Capillary Refill : General Appearance: No Apparent Distress, WD/WN Respiratory: Lungs Clear, No Accessory Muscle Use, No Respiratory Distress Cardiovascular: Regular Rate, Rhythm, No Murmur Gastrointestinal: Normal Bowel Sounds, Non Tender, Soft Neurologic/Psychiatric: Alert, Oriented x3 Results/Procedures Lab Laboratory Tests 02/10/21 05:30 Patient resulted labs reviewed. Imaging: Reviewed Imaging Report Assessment/Plan Assessment and Plan Assess & Plan/Chief Complaint Acute respiratory failure with hypoxia Pneumonia Pleural effusion CT Chest with right effusion and consolidation- usg for marking showed minimal fluid-- discussed with Dr Larios who recommends lasix instead of thoracentesis Continue supplemental oxygen, wean as able Continue Rocephin and Azithromycin Pulm consulted, appreciate recs MA and incentive spirometry NSTEMI, likely type II Troponin trended down, likely due to hypoxia Cardiology consulted, appreciate assistance Muscle spasms RUQ pain Fatty liver CT Abdomen without acute abnormalities (5mm cyst of right kidney noted) Revealed enlarged, fatty liver Liver enzymes normal RUQ ultrasound negative, UA negative Continue Flexeril, gabapentin, lidocaine added Likely due to effusion and irritation Encouraged outpatient follow up again today Pyuria UA with WBC 11-25 Urine culture with no growth Repeat UA negative Pulmonary nodule 1 cm [address] identified on [address], informed patient of importance of following this up Will need follow up CT in 6-8 weeks HTN Hypothyroidism Fibromyalgia Continue home meds DVT prophylaxis: HUGH Wilson MD Feb 10, 2021 10:54
[2021-02-10] MEDS ORDERED: NITROGLYCERIN 2% OINT 1 GM UNIT DOSE PACKET TOP PRN (11:00)
--- NOTE | 2021-02-10 12:43 | ST Cognitive Linguistic Eval ---
Speech Evaluation-General Medical Diagnosis Acute respiratory failure with hypoxia secondary to pneumonia Onset Date: Feb 05, 2021 Therapy Diagnosis Therapy Diagnosis: Cognitive-communication Referral Referring Physician: Dr. Vargas Medical History Pertinent Medical History: HTN, Hypothroidism Reviewed History: Yes Social History Current Living Status: Spouse Speech PLF-Current Status Prior Level of Function Patient lives home with her where she also takes care of her elderly mother. Patient states she has memory problems and she's worried she is going to be like her mother. Subjective Patient was pleasant and cooperative with the cognitive assessment. Language Eval: Auditory Comprehends Simple Yes/No Ques: Functional Indent/Objects Multiple Dao: Functional Ident/Pics in Multiple Dao: Functional Follows 1-Step Commands: Functional Follows Complex Directions: Mild Follows General Conversations: Functional Language Eval: Verbal Language Completes Spontaneous Greeting: Functional Produces Auto, Serial Info: Functional Imitates Simple Words/Phrases: Functional Word Finding: Mild Requests Basic Needs: Functional States Basic Personal Info: Functional Expresses Complex Ideas: Mild Objective Cognitive Domain Attention: WNL Memory: Mild Problem Solving: Functional Executive Functions: WNL Visuospatial Skills: WNL Composite Severity Rating: Mild Clock Drawing Severity Rating: WNL Objective Formal/Standardized Tests [facility] Mental Status ([facility]) Results 24/30, Mild Neurocognitive Disorder range of function Oral Motor/Speech Production Within Normal Limits Impression Patient is a pleasant 60 y/o female who was admitted to the hospital due to respiratory failure and pneumonia. Patient was referred to for a cognitive test due to decreased memory skills. The patient was noted to be alert and oriented x3, however she states she is having difficulty with remembering things more and more. Patient was given the SLUMS with a score of 24/30. This score is within the MNCD range of function which indicates she would benefit from skilled ST services. Speech Short Term Goals Short Term Goals Short Term Goals 1) Patient will complete memory tasks with 90% or greater given minimal cues. 2) Patient will complete safety awareness tasks with 90% or greater given minimal cues. 3) Patient will complete problem solving tasks with 90% or greater given minimal cues. Speech Residential Goals Human Resources Records Clerk Goals Patient will improve cognitive-communication abilities so that she can complete daily tasks with minimal assist. Speech-Plan Patient/Family Goals Patient/Family Goals: Patient plans on returning to her home where she lives with her and takes care of her elderly mother. Treatment Plan Speech Therapy Treatment Plan: Continue Plan of Care Frequency: 3 times per week Estimated Hrs Per Day: .5 hour per day Rehab Potential: Good Barriers to Learning: Patient's decreased cognitive function Pt/Family Agrees to Plan: Yes Safety Risks/Education Teaching Recipient: Patient Teaching Methods: Discussion Response to Teaching: Verbalize Understanding Education Topics Provided: Safety within her room, communication of wants/needs Time Speech Therapy Time In: 12:30 Speech Therapy Time Out: 12:45 Total Billed Time: 15 Billed Treatment Time 1, LOLA MURGUIA [facility]ETHANIA [facility] 12[facility]43
[2021-02-10] MEDS: cefTRIAXone FOR IV USE 2,000 MG in WATER (STERILE) FOR INJECTION 20 ML IV SCH (13:35)
--- NOTE | 2021-02-10 14:26 | Occupational Ther Daily Note ---
OT Current Status-Daily Note Subjective Pt alert, lying in bed. Pt agrees to therapy. No c/o pain initially then pain R abdomen when bending toward that side. Mental Status/Objective Patient Orientation: Person, Place, Time, Situation Attachments: IV (midline) ADL-Treatment Pt agrees to sponge bath and oral care. Pt ambulated without AD to stand at sink to complete oral care independently. Pt then ambulated back to bed to complete sponge bath, independently. Pt donned/doffed brief and socks independently. Pt only has hospital gown to change into. After therapy, pt lying in bed with call light/phone in reach. All needs met in room. Therapy Code Descriptions/Definitions Functional [place] Measure: 0=Not Assessed/NA 4=Minimal Assistance 1=Total Assistance 5=Supervision or Setup 2=Maximal Assistance 6=Modified [place] 3=Moderate Assistance 7=Complete IndependenceSCALE: Activities may be completed with or without assistive devices. 1-[id number]-[id number] completes the activity by him/herself with no assistance from a helper. 5-Set-up or Clean-up Assistance-helper sets up or cleans up; patient completes activity. [place] assists only prior to or following the activity. 4-Supervision or Touching Assistance-helper provides verbal cues and/or touching/steadying and/or contact guard assistance as patient completes activity. Assistance may be provided throughout the activity or intermittently. 3-Partial/Moderate Assistance-helper does LESS THAN HALF the effort. [place] lifts, holds or supports trunk or limbs, but provides less than half the effort. 2-Substantial/Maximal Assistance-helper does MORE THAN HALF the effort. [place] lifts or holds trunk or limbs and provides more than half the effort. 4-Zhshwrgoa-vfujpn does ALL the effort. Patient does none of the effort to complete the activity. Or, the assistance of 2 or more helpers is required for the patient to complete the activity. If activity was not attempted, code reason: 7-Patient Refused. 9-Not Applicable-not attempted and the patient did not perform the activity before the current illness, exacerbation or injury. 10-Not Attempted due to Environmental Limitations-(lack of equipment, weather restraints, etc.). 88-Not Attempted due to Medical Conditions or Safety Concerns. Oral Hygiene (QC): 6 Shower/Bathe Self (QC): 6 Lower Body Dressing (QC): 6 On/Off Footwear: 6 OT Shelter Goals Senior Systems Software Engineer Goals Time Frame: Feb 16, 2021 Eating (QC): 6 Oral Hygiene (QC): 6 Toileting Hygiene (QC): 6 Shower/Bathe Self (QC): 6 Upper Body Dressing (QC): 6 Lower Body Dressing (QC): 6 On/Off Footwear (QC): 6 Additional Goals: 1-Demonstrate ADL Tasks, 2-Verbalize Understanding, 3- ImproveStrength/José Miguel 1=Demonstrate adherence to instructed precautions during ADL tasks. 2=Patient will verbalize/demonstrate understanding of assistive devices/modifications for ADL. 3=Patient will improve strength/tolerance for activity to enable patient to perform ADL's. OT Education/Plan Problem List/Assessment Assessment: Decreased Activ Tolerance Discharge Recommendations Plan/Recommendations: Continue POC Treatment Plan/Plan of Care Patient would benefit from OT for education, treatment and training to promote independence in ADL's, mobility, safety and/or upper extremity function for ADL's. Plan of Care: ADL Retraining, Functional Mobility, UE Funct Exercise/Act Treatment Duration: Feb 16, 2021 Frequency: 5 times per week Estimated Hrs Per Day: .25 hour per day Agreement: Yes Rehab Potential: Good Time/GCodes Start Time: 13:30 Stop Time: 14:08 Total Time Billed (hr/min): 38 Billed Treatment Time 1 visit-ADL 3 (38 min) TUYET WALLACE Feb 10, 2021 14:26
--- NOTE | 2021-02-10 15:52 | Progress Note - Cardiology ---
Cardiology SOAP Progress Note Subjective: Right lower rib cage or RUQ pain as before No other cp No palp or syncope Shortness of breath with activity No n/v Objective: I&O/Vital Signs 02/10/21 02/10/21 02/10/21 02/10/21 08:00 08:00 10:12 15:01 Temp 36.7 Pulse 90 Resp 18 B/P (MAP) 185/102 (129) Pulse Ox 96 94 93 93 O2 Delivery High Flow N/C High Flow N/C Nasal Cannula Nasal Cannula O2 Flow Rate 3.00 2.00 2.00 2.00 02/10/21 15:49 Temp 36.2 Pulse 73 Resp 18 B/P (MAP) 148/83 (104) Pulse Ox 96 O2 Delivery High Flow N/C O2 Flow Rate 2.00 02/10/21 00:00 Intake Total 2876 ml Balance 2876 ml Constitutional: AAO x 3, well-developed, well-nourished Respiratory: No accessory muscle use; other (diminished air entry at the R base; pleuritic pain experienced by the patient upon inspiration; poor inspir atory effort; coarse breath sounds left base) Cardiovascular: regular rate-rhythm, S1 and S2, systolic murmur (faint MIGUE at card base) Gastrointestional: No tender; soft; No guarding, No rebound; audible bowel sounds Extremities: No clubbing, No cyanosis, No significant edema Neurologic/Psychiatric: oriented x 3, other (moves all limbs equally) Skin: warm/dry; No cool, No rash on exposed areas, No ulcerations on exposed areas Results/Procedures: Labs Laboratory Tests 02/10/21 05:30: White Blood Count 5.5, Red Blood Count 4.28, Hemoglobin 11.6, Hematocrit 36, Mean Corpuscular Volume 83, Mean Corpuscular Hemoglobin 27, Mean Corpuscular Hemoglobin Concent 33, Red Cell Distribution Width 14.2, Platelet Count 144, Mean Platelet Volume 11.4, Immature Granulocyte % (Auto) 1, Neutrophils (%) (Auto) 67, Lymphocytes (%) (Auto) 24, Monocytes (%) (Auto) 7, Eosinophils (%) (Auto) 1, Basophils (%) (Auto) 0, Neutrophils # (Auto) 3.7, Lymphocytes # (Auto) 1.3, Monocytes # (Auto) 0.4, Eosinophils # (Auto) 0.0, Basophils # (Auto) 0.0, Immature Granulocyte # (Auto) 0.1, Sodium Level 140, Potassium Level 3.5L, Chloride Level 107, Carbon Dioxide Level 23, Anion Gap 10, Blood Urea Nitrogen 8, Creatinine 0.84, Estimat Glomerular Filtration Rate > 60, BUN/Creatinine Ratio 10, Glucose Level 98, Calcium Level 8.8, Phosphorus Level 4.5, Magnesium Level 2.1, Procalcitonin 0.25H Microbiology 02/05/21 Urine Culture - Final, Complete NO GROWTH 02/05/21 MRSA Screen - Final, Complete MRSA not isolated Laboratory Tests 02/09/21 04:45 02/10/21 05:30 A/P: Assessment: Large RLL pneumonia with pleurisy and hypoxia Mild troponin elevation: type 2 [place] due to hypoxia due to RLL pnuemonia and dsypnea (due to pleurisy) Plan: * Monitor labs * Replace electrolytes as indicated * Cardiac status appears clinically stable ELDON RIOS MD FACP [facility] Feb 10, 2021 15:52
[2021-02-10] MEDS: ENOXAPARIN 40 MG/0.4 ML (LOVENOX) SYR SC SCH (19:34)
[2021-02-10] MEDS: CYCLOBENZAPRINE 10 MG (FLEXERIL) TAB PO PRN (19:34)
[2021-02-10] MEDS: LIDOCAINE PATCH REMOVAL TP SCH (21:35)
[2021-02-11] MEDS: RT-ALBUTEROL SULF 2.5 MG/3 ML PRE-MIX VIAL INH SCH ×2 (01:16→10:42)
[2021-02-11] MEDS: oxyCODONE/APAP 10/325MG (PERCOCET 10) TABLET PO PRN (05:10)
[2021-02-11] MEDS: LEVOTHYROXINE 25 MCG (LEVOTHROID) TAB PO SCH (05:14)
[2021-02-11 05:32] LABS: BASOPHILS % (AUTO) 0 % (0-10); EOSINOPHILS # (AUTO) 0.1 10^3/uL (0.0-0.3); EOSINOPHILS % (AUTO) 1 % (0-10); HEMATOCRIT 39 % (35-52); LYMPHOCYTES # (AUTO) 1.8 10^3/uL (1.0-4.0); LYMPHOCYTES % (AUTO) 26 % (12-44); MEAN CORPUSCULAR HEMOGLOBIN 28 pg (25-34); MEAN CORPUSCULAR HGB CONC 33 g/dL (32-36); MEAN CORPUSCULAR VOLUME 83 fL (80-99); MEAN PLATELET VOLUME 11.7 fL (9.0-12.2); MONOCYTES # (AUTO) 0.6 10^3/uL (0.0-1.0); MONOCYTES % (AUTO) 9 % (0-12); NEUTROPHILS # (AUTO) 4.2 10^3/uL (1.8-7.8); NEUTROPHILS % (AUTO) 62 % (42-75); PLATELET COUNT 188 10^3/uL (130-400); WHITE BLOOD COUNT 6.7 10^3/uL (4.3-11.0)
[2021-02-11 05:49] LABS: BUN/CREATININE RATIO 10; CALCIUM 9.2 MG/DL (8.5-10.1); CARBON DIOXIDE 22 MMOL/L (21-32); CHLORIDE 106 MMOL/L (98-107); GFR ESTIMATED > 60; GLUCOSE 100 MG/DL (70-105); MAGNESIUM 2.3 MG/DL (1.6-2.4); PHOSPHORUS 4.8 MG/DL (2.3-4.7); POTASSIUM 4.1 MMOL/L (3.6-5.0); SODIUM 140 MMOL/L (135-145)
[2021-02-11] MEDS ORDERED: FUROSEMIDE 40 MG/4 ML INJ (LASIX) IVP ONE (06:15)
[2021-02-11] MEDS: KCL 20 MEQ TAB (K-DUR) PO SCH (06:18)
[2021-02-11] MEDS: POTASSIUM CL 10MEQ/50ML IVPB 50 ML IV SCH (06:18)
[2021-02-11] MEDS: MAGNESIUM 1 GM/100 ML IVPB 100 ML IV SCH (06:18)
--- NOTE | 2021-02-11 06:20 | Pulmonary Progress Note ---
Subjective Time Seen by a Provider: 06:17 Subjective/Events-last exam No complications noted. Sepsis Event Evaluation Height, Weight, BMI Height: '" Weight: lbs. oz. kg; 30.10 BMI Method: Exam Exam Vital Signs Date Time Temp Pulse Resp B/P (MAP) Pulse Ox O2 Delivery O2 Flow Rate FiO2 02/11/21 01:16 92 Nasal Cannula 2.00 02/11/21 00:00 35.9 72 18 133/86 (102) 92 High Flow N/C 2.00 02/10/21 20:00 96 High Flow N/C 2.00 02/10/21 20:00 36.4 79 18 166/100 (122) 97 High Flow N/C 2.00 02/10/21 19:06 93 Nasal Cannula 2.00 02/10/21 15:49 36.2 73 18 148/83 (104) 96 High Flow N/C 2.00 02/10/21 15:01 93 Nasal Cannula 2.00 02/10/21 10:12 93 Nasal Cannula 2.00 02/10/21 08:00 36.7 90 18 185/102 (129) 94 High Flow N/C 2.00 02/10/21 08:00 96 High Flow N/C 3.00 I & O 02/11/21 07:00 Intake Total 3345 ml Balance 3345 ml Height & Weight Height: '" Weight: lbs. oz. kg; 30.10 BMI Method: General Appearance: No Apparent Distress, WD/WN HEENT: PERRL/EOMI, Pharynx Normal Neck: Normal Inspection, Supple Respiratory: Lungs Clear, No Accessory Muscle Use, No Respiratory Distress Cardiovascular: Regular Rate, Rhythm, No Murmur Extremity: Normal Inspection, Non Tender, No Pedal Edema Neurologic/Psychiatric: Alert, Oriented x3 Skin: Other (skin on right flank normal, no rash or lesions) Results Lab Laboratory Tests 02/10/21 05:30 02/11/21 05:11 Assessment/Plan Assessment/Plan Acute hypoxia with right pleural effusion -chest US for thoracentesis -- shows only small right effusion -IVF are SL Stage 1 diastolic dysfunction per echo with small pleural effusion -Give 40mg of Lasix x 1 -Monitor Pneumonia wjith pleurisy -Continue Abx NSTEMI Fatty liver Pulmonary nodule -Repeat CT 6-8wks HTN Hypothyroidism Fibromyalgia Continue home meds DVT prophylaxis: LOREE Gu DO Feb 11, 2021 06:20
[2021-02-11] MEDS ORDERED: cefTRIAXone FOR IV USE 1,000 MG in WATER (STERILE) FOR INJECTION 10 ML IV SCH (07:00)
[2021-02-11] MEDS: LACTOBACILLUS ACIDOPHILUS (PROBIOTIC) CAPSULE PO SCH (08:47)
[2021-02-11] MEDS: AZITHROMYCIN 250 MG TAB (ZITHROMAX) PO SCH (08:47)
[2021-02-11] MEDS: ASPIRIN 81 MG CHEW (CHILDREN'S ASA) PO SCH (08:47)
[2021-02-11] MEDS: VALSARTAN 160 MG (DIOVAN) TABLET PO SCH (08:47)
[2021-02-11] MEDS: SENNOSIDES 8.6 MG (SENOKOT) TAB PO SCH (08:48)
[2021-02-11] MEDS: CARVEDILOL 6.25 MG (COREG) TAB PO SCH (08:48)
[2021-02-11] MEDS: CYCLOBENZAPRINE 10 MG (FLEXERIL) TAB PO PRN (08:48)
[2021-02-11] MEDS: DULoxetine 30 MG (CYMBALTA) CAP PO SCH (08:48)
[2021-02-11] MEDS: GABAPENTIN 300 MG (NEURONTIN) CAP PO SCH (08:48)
[2021-02-11] MEDS ORDERED: KCL 20 MEQ TAB (K-DUR) PO ONE (09:00)
--- NOTE | 2021-02-11 10:17 | Discharge Inst-Simple/Standard ---
Discharge Inst-Standard Patient Instructions/Follow Up Plan of Care/Instructions/FU: Please continue to take your medications as written. Please follow up with your primary care doctor to follow up this hospital stay. Activity as Tolerated: Yes Discharge Diet: No Restrictions Health Concerns: Please follow up with your primary care doctor for repeat CT chest to follow up this infection and nodule within 3 months. I have called and informed your PCP's office of this as well to ensure adequate follow up. Return to The Hospital For: Chest pain, shortness of breath, fever, confusion, if you feel you are getting worse. HUGH GENAO MD Feb 11, 2021 10:17
[2021-02-11] MEDS ORDERED: ASPI81TA64 PO (10:20)
[2021-02-11] MEDS ORDERED: CARV6.252 PO (10:20)
[2021-02-11] MEDS ORDERED: LACT1CAP7 PO (10:20)
[2021-02-11] MEDS ORDERED: CEFD300C3 PO (10:21)
--- NOTE | 2021-02-11 10:32 | Progress Note - Cardiology ---
Cardiology SOAP Progress Note Subjective: Sitting up in recliner at the bedside States she feels better today Still has some RUQ discomfort with deep breathing, but improved Objective: I&O/Vital Signs Constitutional: AAO x 3, well-developed, well-nourished Respiratory: No accessory muscle use; other (diminished air entry at the R base; pleuritic pain experienced by the patient upon inspiration; poor inspiratory effort; clear breath sounds left) Cardiovascular: regular rate-rhythm, S1 and S2, systolic murmur (faint MIGUE at card base) Gastrointestional: No tender; soft; No guarding, No rebound; audible bowel sounds Extremities: No clubbing, No cyanosis, No significant edema Neurologic/Psychiatric: oriented x 3, other (moves all limbs equally) Skin: warm/dry; No cool, No rash on exposed areas, No ulcerations on exposed areas Results/Procedures: Labs Microbiology 02/05/21 Urine Culture - Final, Complete NO GROWTH 02/05/21 MRSA Screen - Final, Complete MRSA not isolated A/P: Assessment: Large RLL pneumonia with pleurisy and hypoxia Mild troponin elevation: type 2 [place] due to hypoxia due to RLL pnuemonia and dsypnea (due to pleurisy) Plan: * Monitor labs * Replace electrolytes as indicated * Cardiac status appears clinically stable LUCIO CASTAÑEDA Feb 11, 2021 10:32
--- NOTE | 2021-02-11 13:15 | Progress Note - Cardiology ---
Cardiology SOAP Progress Note Subjective: RUQ/R lower chest wall pain, somewhat better but not resolved No other chest discomfort No palp or syncope No n/v/d Objective: I&O/Vital Signs 02/11/21 02/11/21 02/11/21 02/11/21 01:16 08:24 08:30 10:42 Temp 36.6 Pulse 78 Resp 20 B/P (MAP) 118/82 (94) Pulse Ox 92 98 98 O2 Delivery Nasal Cannula High Flow N/C High Flow N/C Nasal Cannula O2 Flow Rate 2.00 2.00 2.00 2.00 02/11/21 12:10 B/P (MAP) 02/10/21 23:59 Intake Total 3050 ml Balance 3050 ml Constitutional: AAO x 3, well-developed, well-nourished Respiratory: No accessory muscle use; other (diminished air entry at the R base; pleuritic pain experienced by the patient upon inspiration; poor inspiratory effort; clear breath sounds left) Cardiovascular: regular rate-rhythm, S1 and S2, systolic murmur (faint MIGUE at card base) Gastrointestional: No tender; soft; No guarding, No rebound; audible bowel sounds Extremities: No clubbing, No cyanosis, No significant edema Neurologic/Psychiatric: oriented x 3, other (moves all limbs equally) Skin: warm/dry; No cool, No rash on exposed areas, No ulcerations on exposed a reas Results/Procedures: Labs Laboratory Tests 02/11/21 05:11: White Blood Count 6.7, Red Blood Count 4.73, Hemoglobin 13.0, Hematocrit 39, Mean Corpuscular Volume 83, Mean Corpuscular Hemoglobin 28, Mean Corpuscular Hemoglobin Concent 33, Red Cell Distribution Width 14.1, Platelet Count 188, Mean Platelet Volume 11.7, Immature Granulocyte % (Auto) 2, Neutrophils (%) (Auto) 62, Lymphocytes (%) (Auto) 26, Monocytes (%) (Auto) 9, Eosinophils (%) (Auto) 1, Basophils (%) (Auto) 0, Neutrophils # (Auto) 4.2, Lymphocytes # (Auto) 1.8, Monocytes # (Auto) 0.6, Eosinophils # (Auto) 0.1, Basophils # (Auto) 0.0, Immature Granulocyte # (Auto) 0.1, Neutrophils % (Manual) , Sodium Level 140, Potassium Level 4.1, Chloride Level 106, Carbon Dioxide Level 22, Anion Gap 12, Blood Urea Nitrogen 9, Creatinine 0.90, Estimat Glomerular Filtration Rate > 60, BUN/Creatinine Ratio 10, Glucose Level 100, Calcium Level 9.2, Phosphorus Level 4.8H, Magnesium Level 2.3 Microbiology 02/05/21 Urine Culture - Final, Complete NO GROWTH 02/05/21 MRSA Screen - Final, Complete MRSA not isolated Laboratory Tests 02/10/21 05:30 02/11/21 05:11 A/P: Assessment: Large RLL pneumonia with pleurisy and hypoxia Mild troponin elevation: type 2 [place] due to hypoxia due to RLL pnuemonia and dsypnea (due to pleurisy) Plan: * Monitor labs * Replace electrolytes as indicated * Cardiac status appears clinically stable * Outpt cardiac f/u advised * I discussed her case with ELDON Doyle am, MD FACP [facility] Feb 11, 2021 13:15
--- NOTE | 2021-02-11 13:50 | Speech Therapy Daily Note ---
Speech Daily Progress Note Subjective Date Seen by Provider: Feb 11, 2021 Time Seen by Provider: 00:10 Patient is discharging to her home where she lives with her this afternoon. Objective Patient completed simple memory task with min to mod cues at 75%. Assessment Assessment Current Status: Fair Progress Treatment Plan Discontinue ST Speech Short Term Goals Short Term Goals Short Term Goals 1) Patient will complete memory tasks with 90% or greater given minimal cues. 2) Patient will complete safety awareness tasks with 90% or greater given minimal cues. 3) Patient will complete problem solving tasks with 90% or greater given minimal cues. Speech [employer] Goals Senior Care Goals Patient will improve cognitive-communication abilities so that she can complete daily tasks with minimal assist. Speech-Plan Patient/Family Goals Patient/Family Goals: Patient is discharging to her home this afternoon. Treatment Plan Speech Therapy Treatment Plan: Discontinue ST Frequency: 3 times per week Estimated Hrs Per Day: .5 hour per day Rehab Potential: Good Barriers to Learning: Patient's decreased memory ability Pt/Family Agrees to Plan: Yes Safety Risks/Education Teaching Recipient: Patient Teaching Methods: Demonstration, Discussion Response to Teaching: Verbalize Understanding, Return Demonstration Education Topics Provided: Memory strategies/information to take home Time Speech Therapy Time In: 13:00 Speech Therapy Time Out: 13:10 Total Billed Time: 10 Billed Treatment Time [address] Feb 11, 2021 13:50
== END 2021-02-11 13:35 | disposition home or self-care (01) | DRG 193 ==
LOC: ICU 02-05 00:43 → 4TH 02-06 11:52
PROVIDERS: ADMIT Internal Medicine; ATTEND Family Medicine
DX: J18.9 Pneumonia, unspecified organism (principal); J96.01 Acute respiratory failure with hypoxia; I21.A1 Myocardial infarction type 2; J90 Pleural effusion, not elsewhere classified; I10 Essential (primary) hypertension; E03.9 Hypothyroidism, unspecified; M79.7 Fibromyalgia; Z88.5 Allergy status to narcotic agent; Z20.822 Contact with and (suspected) exposure to COVID-19; K76.0 Fatty (change of) liver, not elsewhere classified; R82.81 Pyuria; R91.1 Solitary pulmonary nodule; M62.838 Other muscle spasm; R10.11 Right upper quadrant pain
CPT/HCPCS: 36415; 71045; 71260; 76604; 76705; 80048; 80076; 81000; 82607; 82728; 82746; 82805; 83540; 83550; 83735; 83880; 84100; 84145; 84484; 85007; 85025; 85027; 87081; 87088; 87635; 93005; 93306; 94640; 94664; 94760; 94761